=== PATIENT | female | born 1930 | race Caucasian/White ===

== ENCOUNTER 2017-10-28 15:31 | Inpatient (IN) | payer MEDICARE ==
--- NOTE | 2017-10-28 15:40 | ED Physician Chart ---
ED Chief Complaint/HPI - Patient Information Date Seen:: 10/28/17 Time Seen:: 15:35 Chief Complaint:: Increased agitation for 3 days. History of Present Illness:: Pt has h/o dementia. She was brought in by private auto with her son Rommel because of increased agitation for at least 3 days. No known fever, anorexia, N/ V/D, or other bodily discomfort. Pt is not cooperative; thus, H & P are limited. Pt does not appear to be in distress. Allergies:: NKA Vitals:: see Nurse Note. Historian:: Patient, Family Member (her son Rommel.) Family MD/PCP:: Dr. Tilley. LMP:: Postmenopausal. Review:: Nurse's Note Reviewed ED Review of Systems - Review of Systems General/Constitutional: No fever, No weight loss, No weakness, No edema, No loss of appetite, Other (Review of systems is limited because pt has dementia and is not cooperative.) Skin: No rash, No bruising Cardio Vascular: No chest pain, No edema Pulmonary: No SOB GI: No nausea, No vomiting, No diarrhea, No pain ED Past Medical History - Past Medical History Past Medical History: Dementia, Other (chronic anemia.) Family History: Diabetes Melitus (in father and son.) Social History: No Alcohol, No Drug Use, , Other (lives with her son Rommel.) Employment:: Retired. Surgical History: None Psychiatricy History: Dementia Medication: Reviewed Family Medical History - Family Member Mother History Unknown: Yes ED Physical Exam - Physical Examination General/Constitutional: Awake, Well-developed, well-nourished, Alert, Non-toxic appearing Other Gen/Cons comments:: Breathes comfortably, speaks clearly, but is not cooperative. Pt at times is very agitated. Head: Atraumatic Eyes: Lids, conjuctiva normal, PERRL, EOMI Skin: Nl inspection, No ecchymosis, No lymphadenopathy ENMT: External ears, nose nl, Nasal exam nl, Oropharynx nl, Tonsils nl Neck: Nontender, Full ROM w/o pain, No JVD, No nuchal rigidity, No mass, No stridor Respiratory: Nl effort/Exclusion, Clear to Auscultation, No Wheeze/Rhonchi/Rales Cardio Vascular: RRR, No murmur, gallop, rubs GI: No tenderness/rebounding/guarding, No organomegaly, No hernia, Normal BS's, Nondistended, No mass/bruits Other GI comments:: Abdomen is soft. : No CVA tenderness Extremities: No tenderness or effusion, Full ROM, No edema Neuro/Psych: Alert/oriented Other Neuro/Psych comments:: knows her name. Spontaneous movements noticed in all 4 extremities. Pt does not cooperate for full neurological exam. ED Labs/Radiology/EKG Results - Lab Results Results: Laboratory Tests 10/28/17 10/28/17 10/28/17 15:52 15:52 15:52 WBC 8.0 RBC 5.08 Hgb 10.0 L Hct 31.6 L MCH 19.6 L MCHC Differential 31.5 RDW 13.8 Plt Count 209 MPV 10.4 PT 11.0 INR 1.06 PTT (Actin FS) 25.8 L Sodium 131 L Potassium 4.3 Chloride 101 Carbon Dioxide 24.6 Anion Gap 9.7 BUN 22 Creatinine 0.9 Est GFR ( Amer) TNP Est GFR (Non-Af Amer) TNP BUN/Creatinine Ratio 24.4 Glucose 97 Whole Bld Lactic Acid Calcium 8.8 Total Bilirubin 0.6 AST 24 ALT 16 Alkaline Phosphatase 101 Creatine Kinase 32 Total Protein 7.0 Albumin 3.7 Globulin 3.3 Albumin/Globulin Ratio 1.1 10/28/17 15:52 WBC RBC Hgb Hct MCH MCHC Differential RDW Plt Count MPV PT INR PTT (Actin FS) Sodium Potassium Chloride Carbon Dioxide Anion Gap BUN Creatinine Est GFR ( Amer) Est GFR (Non-Af Amer) BUN/Creatinine Ratio Glucose Whole Bld Lactic Acid 1.22 Calcium Total Bilirubin AST ALT Alkaline Phosphatase Creatine Kinase Total Protein Albumin Globulin Albumin/Globulin Ratio Laboratory Last Values WBC 8.0 Th/cmm (4.8-10.8) 10/28/17 15:52 RBC 5.08 Mil/cmm (3.80-5.20) 10/28/17 15:52 Hgb 10.0 gm/dL (12-16) L 10/28/17 15:52 Hct 31.6 % (41.0-60) L 10/28/17 15:52 MCV 62.2 fl (81-100) L 10/28/17 15:52 MCH 19.6 pg (27.0-31.0) L 10/28/17 15:52 MCHC Differential 31.5 pg (28.0-36.0) 10/28/17 15:52 RDW 13.8 % (11.5-20.0) 10/28/17 15:52 Plt Count 209 Th/cmm (150-400) 10/28/17 15:52 MPV 10.4 fl 10/28/17 15:52 Band Neutrophils % 2 % (0-10) 10/28/17 15:52 Neutrophils (Manual) 85 % (40-80) H 10/28/17 15:52 Lymphocytes 10 % (20-50) L 10/28/17 15:52 Monocytes 3 % (2-10) 10/28/17 15:52 Eosinophils 0 % (0-5) 10/28/17 15:52 Basophils 0 % (0-3) 10/28/17 15:52 Platelet Estimate ADEQUATE (NORMAL) 10/28/17 15:52 Microcytosis 3+ 10/28/17 15:52 PT 11.0 SECONDS (9.5-11.5) 10/28/17 15:52 INR 1.06 (0.5-1.4) 10/28/17 15:52 PTT (Actin FS) 25.8 SECONDS (26.0-38.0) L 10/28/17 15:52 Sodium 131 mEq/L (136-145) L 10/28/17 15:52 Potassium 4.3 mEq/L (3.5-5.1) 10/28/17 15:52 Chloride 101 mEq/L (98-107) 10/28/17 15:52 Carbon Dioxide 24.6 mEq/L (21.0-31.0) 10/28/17 15:52 Anion Gap 9.7 (7.0-16.0) 10/28/17 15:52 BUN 22 mg/dL (7-25) 10/28/17 15:52 Creatinine 0.9 mg/dL (0.6-1.2) 10/28/17 15:52 Est GFR ( Amer) TNP 10/28/17 15:52 Est GFR (Non-Af Amer) TNP 10/28/17 15:52 BUN/Creatinine Ratio 24.4 10/28/17 15:52 Glucose 97 mg/dL (70-105) 10/28/17 15:52 Whole Bld Lactic Acid 1.22 mmol/L (0.60-1.99) 10/28/17 15:52 Calcium 8.8 mg/dL (8.6-10.3) 10/28/17 15:52 Total Bilirubin 0.6 mg/dL (0.3-1.0) 10/28/17 15:52 AST 24 U/L (13-39) 10/28/17 15:52 ALT 16 U/L (7-52) 10/28/17 15:52 Alkaline Phosphatase 101 U/L (34-104) 10/28/17 15:52 Creatine Kinase 32 U/L (30-223) 10/28/17 15:52 Troponin I 0.01 ng/mL (0.01-0.05) 10/28/17 15:52 Total Protein 7.0 gm/dL (6.0-8.3) 10/28/17 15:52 Albumin 3.7 gm/dL (3.7-5.3) 10/28/17 15:52 Globulin 3.3 gm/dL 10/28/17 15:52 Albumin/Globulin Ratio 1.1 (1.0-1.8) 10/28/17 15:52 Laboratory Last Values WBC 8.0 Th/cmm (4.8-10.8) 10/28/17 15:52 RBC 5.08 Mil/cmm (3.80-5.20) 10/28/17 15:52 Hgb 10.0 gm/dL (12-16) L 10/28/17 15:52 Hct 31.6 % (41.0-60) L 10/28/17 15:52 MCV 62.2 fl (81-100) L 10/28/17 15:52 MCH 19.6 pg (27.0-31.0) L 10/28/17 15:52 MCHC Differential 31.5 pg (28.0-36.0) 10/28/17 15:52 RDW 13.8 % (11.5-20.0) 10/28/17 15:52 Plt Count 209 Th/cmm (150-400) 10/28/17 15:52 MPV 10.4 fl 10/28/17 15:52 Band Neutrophils % 2 % (0-10) 10/28/17 15:52 Neutrophils (Manual) 85 % (40-80) H 10/28/17 15:52 Lymphocytes 10 % (20-50) L 10/28/17 15:52 Monocytes 3 % (2-10) 10/28/17 15:52 Eosinophils 0 % (0-5) 10/28/17 15:52 Basophils 0 % (0-3) 10/28/17 15:52 Platelet Estimate ADEQUATE (NORMAL) 10/28/17 15:52 Microcytosis 3+ 10/28/17 15:52 PT 11.0 SECONDS (9.5-11.5) 10/28/17 15:52 INR 1.06 (0.5-1.4) 10/28/17 15:52 PTT (Actin FS) 25.8 SECONDS (26.0-38.0) L 10/28/17 15:52 Sodium 131 mEq/L (136-145) L 10/28/17 15:52 Potassium 4.3 mEq/L (3.5-5.1) 10/28/17 15:52 Chloride 101 mEq/L (98-107) 10/28/17 15:52 Carbon Dioxide 24.6 mEq/L (21.0-31.0) 10/28/17 15:52 Anion Gap 9.7 (7.0-16.0) 10/28/17 15:52 BUN 22 mg/dL (7-25) 10/28/17 15:52 Creatinine 0.9 mg/dL (0.6-1.2) 10/28/17 15:52 Est GFR ( Amer) TNP 10/28/17 15:52 Est GFR (Non-Af Amer) TNP 10/28/17 15:52 BUN/Creatinine Ratio 24.4 10/28/17 15:52 Glucose 97 mg/dL (70-105) 10/28/17 15:52 Whole Bld Lactic Acid 1.22 mmol/L (0.60-1.99) 10/28/17 15:52 Calcium 8.8 mg/dL (8.6-10.3) 10/28/17 15:52 Total Bilirubin 0.6 mg/dL (0.3-1.0) 04/01/18 15:52 AST 24 U/L (13-39) 10/28/17 15:52 ALT 16 U/L (7-52) 10/28/17 15:52 Alkaline Phosphatase 101 U/L (34-104) 10/28/17 15:52 Creatine Kinase 32 U/L (30-223) 10/28/17 15:52 Troponin I 0.01 ng/mL (0.01-0.05) 10/28/17 15:52 Total Protein 7.0 gm/dL (6.0-8.3) 10/28/17 15:52 Albumin 3.7 gm/dL (3.7-5.3) 10/28/17 15:52 Globulin 3.3 gm/dL 10/28/17 15:52 Albumin/Globulin Ratio 1.1 (1.0-1.8) 10/28/17 15:52 Laboratory Last Values WBC 8.0 Th/cmm (4.8-10.8) 10/28/17 15:52 RBC 5.08 Mil/cmm (3.80-5.20) 10/28/17 15:52 Hgb 10.0 gm/dL (12-16) L 10/28/17 15:52 Hct 31.6 % (41.0-60) L 10/28/17 15:52 MCV 62.2 fl (81-100) L 10/28/17 15:52 MCH 19.6 pg (27.0-31.0) L 10/28/17 15:52 MCHC Differential 31.5 pg (28.0-36.0) 10/28/17 15:52 RDW 13.8 % (11.5-20.0) 10/28/17 15:52 Plt Count 209 Th/cmm (150-400) 10/28/17 15:52 MPV 10.4 fl 10/28/17 15:52 Band Neutrophils % 2 % (0-10) 10/28/17 15:52 Neutrophils (Manual) 85 % (40-80) H 10/28/17 15:52 Lymphocytes 10 % (20-50) L 10/28/17 15:52 Monocytes 3 % (2-10) 10/28/17 15:52 Eosinophils 0 % (0-5) 10/28/17 15:52 Basophils 0 % (0-3) 10/28/17 15:52 Platelet Estimate ADEQUATE (NORMAL) 10/28/17 15:52 Microcytosis 3+ 10/28/17 15:52 PT 11.0 SECONDS (9.5-11.5) 10/28/17 15:52 INR 1.06 (0.5-1.4) 10/28/17 15:52 PTT (Actin FS) 25.8 SECONDS (26.0-38.0) L 10/28/17 15:52 Sodium 131 mEq/L (136-145) L 10/28/17 15:52 Potassium 4.3 mEq/L (3.5-5.1) 10/28/17 15:52 Chloride 101 mEq/L (98-107) 10/28/17 15:52 Carbon Dioxide 24.6 mEq/L (21.0-31.0) 10/28/17 15:52 Anion Gap 9.7 (7.0-16.0) 10/28/17 15:52 BUN 22 mg/dL (7-25) 10/28/17 15:52 Creatinine 0.9 mg/dL (0.6-1.2) 10/28/17 15:52 Est GFR ( Amer) TNP 10/28/17 15:52 Est GFR (Non-Af Amer) TNP 10/28/17 15:52 BUN/Creatinine Ratio 24.4 10/28/17 15:52 Glucose 97 mg/dL (70-105) 10/28/17 15:52 Whole Bld Lactic Acid 1.22 mmol/L (0.60-1.99) 10/28/17 15:52 Calcium 8.8 mg/dL (8.6-10.3) 10/28/17 15:52 Total Bilirubin 0.6 mg/dL (0.3-1.0) 10/28/17 15:52 AST 24 U/L (13-39) 10/28/17 15:52 ALT 16 U/L (7-52) 10/28/17 15:52 Alkaline Phosphatase 101 U/L (34-104) 10/28/17 15:52 Creatine Kinase 32 U/L (30-223) 10/28/17 15:52 Troponin I 0.01 ng/mL (0.01-0.05) 10/28/17 15:52 Total Protein 7.0 gm/dL (6.0-8.3) 10/28/17 15:52 Albumin 3.7 gm/dL (3.7-5.3) 10/28/17 15:52 Globulin 3.3 gm/dL 10/28/17 15:52 Albumin/Globulin Ratio 1.1 (1.0-1.8) 10/28/17 15:52 Urine Color YELLOW 10/28/17 17:30 Urine Clarity CLEAR (CLEAR) 10/28/17 17:30 Urine pH 7.5 (4.6 - 8.0) 10/28/17 17:30 Ur Specific [place] 1.015 (1.005-1.030) 10/28/17 17:30 Urine Protein NEGATIVE mg/dL (NEGATIVE) 10/28/17 17:30 Urine Glucose (UA) NEGATIVE mg/dL (NEGATIVE) 10/28/17 17:30 Urine Ketones NEGATIVE mg/dL (NEGATIVE) 10/28/17 17:30 Urine Blood NEGATIVE (NEGATIVE) 10/28/17 17:30 Urine Nitrate NEGATIVE (NEGATIVE) 10/28/17 17:30 Urine Bilirubin NEGATIVE (NEGATIVE) 10/28/17 17:30 Urine Urobilinogen 0.2 E.U./dL (0.2 - 1.0) 10/28/17 17:30 Ur Leukocyte Esterase NEGATIVE (NEGATIVE) 10/28/17 17:30 - Radiology Results Results: PCXR: Based on my interpretation, no acute cardiopulmonary disease. Official report is pending. - EKG Interpretations EKG Time:: 16:22 Rate & Rhythm: NSR with VR 98. Comments:: NSSTT changes. ED Septic Shock - . Is Septic Shock (SBP<90, OR Lactate>4 mmol\L) present?: No ED Reassessment (Disposition) - Reassessment Reassessment:: 1631 Pt has been repeatedly evaluated. Pt is now calm after Ativan one mg IV was given. Remaining lab results and PCXR are pending. 1814 Pt remains stable, calm, and comfortable. Remaining lab results just became available. Case was discussed with Dr. Tilley with pertinent H & P, EKG, CXR, and lab findings reviewed. Pt is to be admitted to [facility] under his care. Reassessment Condition:: Improved - Diagnosis Diagnosis:: Dementia with increased agitation. Low grade bodily temperature. Chronic anemia - Patient Disposition Admitted to:: Med/Surg Admitting Medical Physician:: Chano Tilley Time:: 18:20 Condition at Disposition:: Stable, Improved
[2017-10-28] MEDS ORDERED: cefTRIAXone 1 GM in Sodium Chloride 0.9% 50 ML IV ONE (15:53)
[2017-10-28 16:04] LABS: HEMATOCRIT 31.6 % (41.0-60)
[2017-10-28 16:08] LABS: MEAN CORPUSCULAR HEMOGLOBIN 19.6 pg (27.0-31.0); MEAN CORPUSCULAR HGB CONC 31.5 pg (28.0-36.0); MEAN PLATELET VOLUME 10.4 fl; PLATELET COUNT 209 Th/cmm (150-400); RED BLOOD COUNT 5.08 Mil/cmm (3.80-5.20); RED CELL DISTRIBUTION WIDTH 13.8 % (11.5-20.0)
[2017-10-28 16:14] LABS: MANUAL DIFF REQUIRED? YES
[2017-10-28 16:20] LABS: INR 1.06 (0.5-1.4)
[2017-10-28 16:24] LABS: ALB/GLOB RATIO 1.1 (1.0-1.8); ALBUMIN 3.7 gm/dL (3.7-5.3); ALKALINE PHOSPHATASE 101 U/L (34-104); ANION GAP 9.7 (7.0-16.0); BILIRUBIN,TOTAL 0.6 mg/dL (0.3-1.0); BUN - UREA NITROGEN 22 mg/dL (7-25); CALCIUM SERUM 8.8 mg/dL (8.6-10.3); CARBON DIOXIDE 24.6 mEq/L (21.0-31.0); CHLORIDE 101 mEq/L (98-107); CREATININE - SERUM 0.9 mg/dL (0.6-1.2); CREATININE KINASE 32 U/L (30-223); GLUCOSE 97 mg/dL (70-105); POTASSIUM SERUM 4.3 mEq/L (3.5-5.1); SGOT 24 U/L (13-39); SGPT/ALT 16 U/L (7-52); SODIUM SERUM 131 mEq/L (136-145)
[2017-10-28 16:27] LABS: TROP I 0.01 ng/mL (0.01-0.05)
[2017-10-28 16:38] LABS: BAND NEUTROPHILE 2 % (0-10); BASOPHIL 0 % (0-3); EOSINOPHIL 0 % (0-5); LYMPHOCYTE 10 % (20-50); MONOCYTE 3 % (2-10); NEUTROPHILS 85 % (40-80); PLATELET ESTIMATE ADEQUATE (NORMAL); TOTAL CELLS COUNTED 100
[2017-10-28 16:42] LABS: MEAN CELL VOLUME 62.2 fl (81-100)
[2017-10-28 18:04] LABS: URINE MICROSCOPIC INDICATED? YES; URINE SOURCE CATH
[2017-10-28 18:08] LABS: URINE BILIRUBIN NEGATIVE (NEGATIVE); URINE BLOOD NEGATIVE (NEGATIVE); URINE GLUCOSE (UA) NEGATIVE (NEGATIVE); URINE KETONE NEGATIVE (NEGATIVE); URINE LEUKOCYTE ESTERASE NEGATIVE (NEGATIVE); URINE NITRATE NEGATIVE (NEGATIVE); URINE PH 7.5 (4.6 - 8.0); URINE PROTEIN NEGATIVE (NEGATIVE); URINE UROBILINOGEN 0.2 E.U./dL (0.2 - 1.0)
[2017-10-28 18:10] LABS: URINE CLARITY CLEAR (CLEAR); URINE COLOR YELLOW
[2017-10-28 18:12] LABS: URINE RBC 0-2 /hpf (0-5)
[2017-10-28 18:13] LABS: URINE BACTERIA NONE SEEN /hpf (NONE SEEN); URINE EPITHELIAL CELLS OCCASIONAL /lpf (FEW); URINE WBC 0-2 /hpf (0-5)
[2017-10-28] MEDS ORDERED: Mag Sulfate 2gm/50mL Premix 2 GM/50 ML BAG IV PRN (18:52)
[2017-10-28] MEDS ORDERED: Potassium Chloride 20 mEq ER Tab PO PRN (18:52)
[2017-10-28] MEDS ORDERED: Potassium Chloride 40 MEQ, Lidocaine 1% 20mL Vial 25 MG in Sodium Chloride 0.9% 250 ML IV PRN (18:52)
[2017-10-28] MEDS: Sodium Chloride 0.9% 1,000 ML IV SCH (22:35)
[2017-10-29 01:31] VITALS: BP 149/86
[2017-10-29 05:52] LABS: HEMATOCRIT 34.7 % (41.0-60); HEMOGLOBIN 10.8 gm/dL (12-16); MEAN CORPUSCULAR HEMOGLOBIN 19.4 pg (27.0-31.0); MEAN PLATELET VOLUME 11.6 fl; PLATELET COUNT 205 Th/cmm (150-400); RED BLOOD COUNT 5.55 Mil/cmm (3.80-5.20); RED CELL DISTRIBUTION WIDTH 14.1 % (11.5-20.0)
[2017-10-29 05:55] LABS: MANUAL DIFF REQUIRED? YES
[2017-10-29 06:03] LABS: ANION GAP 12.3 (7.0-16.0); BUN - UREA NITROGEN 18 mg/dL (7-25); CALCIUM SERUM 8.6 mg/dL (8.6-10.3); CARBON DIOXIDE 23.3 mEq/L (21.0-31.0); CHLORIDE 101 mEq/L (98-107); CREATININE - SERUM 0.9 mg/dL (0.6-1.2); GLUCOSE 84 mg/dL (70-105); POTASSIUM SERUM 4.6 mEq/L (3.5-5.1); SODIUM SERUM 132 mEq/L (136-145)
--- NOTE | 2017-10-29 07:30 | Diagnostic Imaging Report ---
Portable chest x-ray HISTORY: Fever Allowing for portable technique, the heart size is normal. Atherosclerotic calcification seen within the aortic arch. Slight accentuation of the lower interstitial lung markings. However, no definite acute focal processes are seen. IMPRESSION: 1. No definite acute focal pulmonary processes 2. Atherosclerotic vascular changes
[2017-10-29 07:46] LABS: BAND NEUTROPHILE 3 % (0-10); EOSINOPHIL 1 % (0-5); LYMPHOCYTE 21 % (20-50); MONOCYTE 5 % (2-10); NEUTROPHILS 70 % (40-80); TOTAL CELLS COUNTED 100
[2017-10-29 07:54] LABS: MEAN CELL VOLUME 62.6 fl (81-100)
--- NOTE | 2017-10-29 09:21 | History & Physical ---
ADMIT DATE: 10/28/2017 CHIEF COMPLAINT: Psychosis, agitation, and worsening confusion. HISTORY OF PRESENT ILLNESS: The patient is very confused 87-year-old female. She has history of mood disorder along with Alzheimer dementia as well. For the last couple of days, she has been experiencing more muscle weakness along with worsening confusion and psychosis as well. She was brought to the ER where she was found to have accelerated hypertension and hyponatremia. PAST MEDICAL HISTORY: Significant for mood disorder, Alzheimer's dementia, and hypertension. SOCIAL HISTORY: No history of alcohol, tobacco, or drug abuse. FAMILY HISTORY: Noncontributory. ALLERGIES: No known drug allergies. SURGICAL HISTORY: No recent major surgeries. REVIEW OF SYSTEMS: GENERAL: Positive recent confusion, worsening fatigue, and overall lethargy. HEENT: No recent head trauma or change in vision, taste, hearing, or smell. GASTROINTESTINAL: Positive for decreased oral intake recently and some weight loss as well. No nausea or vomiting. ABDOMEN: No recent pain or distension. SKIN: No recent rashes. PSYCHIATRIC: Positive for psychosis and mood disorder and worsening agitation and irritability. EXTREMITIES: No recent edema. NEUROLOGIC: No history of stroke or seizure. MUSCULOSKELETAL: Positive history of DJD. PHYSICAL EXAMINATION: VITAL SIGNS: Temperature is 98 degrees, heart rate is 110, respirations 20, blood pressure 141/73. Currently, no pain. However, she has been spiking fevers of 100.6 to 100.7 since last night. This morning is 98 degrees. GENERAL: No acute distress. She is very lethargic and confused. HEENT: No acute issues. EYES: No discharge. NECK: Trachea is midline. CARDIOVASCULAR: Regular rate and rhythm. She has episodes of sinus tachycardia. RESPIRATORY: Decreased breath sounds bilaterally. EXTREMITIES: No edema. MUSCULOSKELETAL: She has decreased muscle strength and muscle wasting as well. She appears cachectic. NEUROLOGIC: No evidence of acute stroke or seizure activity. LABORATORY DATA: Blood culture is pending. Chest x-ray is essentially negative. UA is negative. Sodium 131, potassium 4.3, chloride 101, bicarbonate 24.6, BUN 22, creatinine 0.9. Lactic acid is 1.22. Magnesium is 1.9, ____ . Troponin 0.01. AST 24 and ALT 16. ASSESSMENT: 1. Metabolic encephalopathy. 2. Psychosis. 3. Accelerated hypertension. 4. Hyponatremia. 5. Unsteady gait. 6. Dementia, Alzheimer's type with exacerbation. PLAN: The patient is still spiking fevers. Blood cultures pending. Chest x-ray and UA are negative. Her blood pressure is improved. She is now on metoprolol [address] Serrano has been consulted for psychiatry. Continue IV normal saline at 75 mL an hour. Follow up on the chemistry panel tomorrow. She is also on Seroquel 25 mg daily. I have stopped the Ativan as she becomes very lethargic. JOB# [id number]
[2017-10-29] MEDS: Sodium Chloride 0.9% 1,000 ML IV SCH (16:25)
--- NOTE | 2017-10-29 20:53 | Consultation ---
DATE OF CONSULTATION: 10/29/2017 PHYSICIAN REQUESTING CONSULTATION: Dr. Tilley. REASON FOR CONSULTATION: Psychosis. HISTORY OF PRESENT ILLNESS: This patient is an 87-year-old woman admitted for acute agitation and psychosis and worsening confusion. A psychiatric consultation is called to address the issue. The patient is interviewed. Staff was spoken to. The patient continues to be very lethargic and has been not making much sense. Review of the chart indicated that the patient had been on Ativan that was discontinued. The patient is also on Seroquel 25 mg and the patient at this time is not making much sense. Continues to be paranoid; however, is noted to be acutely lethargic as well as confused. The patient has poor short-term as well as long-term memory deficits and I am not getting much information from the patient. PAST PSYCHIATRIC HISTORY: Details are not known. MEDICAL HISTORY: The patient at this time is being treated for hypertension and lethargy. SUBSTANCE ABUSE HISTORY: None. PHYSICAL OR SEXUAL ABUSE HISTORY: None. LEGAL PROBLEMS: None at this time. STRENGTHS AND ASSETS: The patient seems to be motivated. MENTAL EXAMINATION: The patient is an 87-year-old woman looking her stated age, superficially cooperative. Eye contact is poor. Mood is noted to be depressed. Affect is constricted. The patient is very lethargic. The patient's coping skills are noted to be very poor. The patient has paranoid delusions, but details about the command hallucinations could not be elicited, but the patient is not providing much of information. The patient's short and long-term memory are noted to be impaired. The patient, however, is noted to be aware that she is in the hospital. DIAGNOSTIC IMPRESSION: AXIS I: 1A. Psychosis, not otherwise specified. 1B. Dementia and behavioral change, secondary trait. AXIS II: None. AXIS III: As per Dr. Tilley. IMMEDIATE TREATMENT PLAN: The patient's Seroquel is going to be discontinued. The patient is going to be placed on Haldol 1 mg b.i.d. p.r.n. for agitation and the patient is going to be closely monitored. The Ambien is going to be changed to 5 mg in the morning. JOB# [id number]
[2017-10-30] MEDS: Morphine Sulfate 4 mg/mL 1mL Syr IVP PRN ×2 (04:47→15:31)
[2017-10-30 05:33] LABS: HEMATOCRIT 33.5 % (41.0-60); HEMOGLOBIN 10.4 gm/dL (12-16); MEAN CORPUSCULAR HEMOGLOBIN 19.5 pg (27.0-31.0); MEAN CORPUSCULAR HGB CONC 31.2 pg (28.0-36.0); MEAN PLATELET VOLUME 11.4 fl; PLATELET COUNT 216 Th/cmm (150-400); RED BLOOD COUNT 5.37 Mil/cmm (3.80-5.20); WHITE BLOOD COUNT 8.1 Th/cmm (4.8-10.8)
[2017-10-30 05:34] LABS: MANUAL DIFF REQUIRED? YES
[2017-10-30 05:46] LABS: ANION GAP 10.3 (7.0-16.0); BUN - UREA NITROGEN 14 mg/dL (7-25); CALCIUM SERUM 8.5 mg/dL (8.6-10.3); CARBON DIOXIDE 23.2 mEq/L (21.0-31.0); CHLORIDE 102 mEq/L (98-107); CREATININE - SERUM 0.8 mg/dL (0.6-1.2); GLUCOSE 82 mg/dL (70-105); POTASSIUM SERUM 3.5 mEq/L (3.5-5.1); SODIUM SERUM 132 mEq/L (136-145)
[2017-10-30 06:09] LABS: BAND NEUTROPHILE 2 % (0-10); LYMPHOCYTE 23 % (20-50); MONOCYTE 8 % (2-10); NEUTROPHILS 67 % (40-80); TOTAL CELLS COUNTED 100
[2017-10-30 06:41] LABS: MEAN CELL VOLUME 62.3 fl (81-100)
--- NOTE | 2017-10-30 09:33 | General Progress Note ---
Subjective - Review of Systems Service Date: 10/30/17 Subjective: Pt seen and eval. I've met with he daughter and son in law as well. They want their mother to go to [place] ce[place], when she's stable. Pt seen by Dr. Keene. He's placed on prn Haldol now, and dc'd Seroquel. Pt resting. Has episodes of psychosis. No fevers or chills. No cough. No dysuria. No pain. No n,v,d or cp. Objective - Results Result Diagrams: 10/30/17 04:45 10/30/17 04:45 Recent Labs: Laboratory Last Values WBC 8.1 Th/cmm (4.8-10.8) 10/30/17 04:45 RBC 5.37 Mil/cmm (3.80-5.20) H 10/30/17 04:45 Hgb 10.4 gm/dL (12-16) L 10/30/17 04:45 Hct 33.5 % (41.0-60) L 10/30/17 04:45 MCV 62.3 fl (81-100) L 10/30/17 04:45 MCH 19.5 pg (27.0-31.0) L 10/30/17 04:45 MCHC Differential 31.2 pg (28.0-36.0) 10/30/17 04:45 RDW 14.0 % (11.5-20.0) 10/30/17 04:45 Plt Count 216 Th/cmm (150-400) 10/30/17 04:45 MPV 11.4 fl 10/30/17 04:45 Band Neutrophils % 2 % (0-10) 10/30/17 04:45 Neutrophils (Manual) 67 % (40-80) 10/30/17 04:45 Lymphocytes 23 % (20-50) 10/30/17 04:45 Monocytes 8 % (2-10) 10/30/17 04:45 Eosinophils 1 % (0-5) 10/29/17 04:55 Basophils 0 % (0-3) 10/28/17 15:52 Platelet Estimate ADEQUATE (NORMAL) 10/28/17 15:52 Microcytosis 2+ 10/30/17 04:45 RBC Morph Micro Appear ABNORMAL (NORMAL) 10/30/17 04:45 PT 11.0 SECONDS (9.5-11.5) 10/28/17 15:52 INR 1.06 (0.5-1.4) 10/28/17 15:52 PTT (Actin FS) 25.8 SECONDS (26.0-38.0) L 10/28/17 15:52 Sodium 132 mEq/L (136-145) L 10/30/17 04:45 Potassium 3.5 mEq/L (3.5-5.1) 10/30/17 04:45 Chloride 102 mEq/L (98-107) 10/30/17 04:45 Carbon Dioxide 23.2 mEq/L (21.0-31.0) 10/30/17 04:45 Anion Gap 10.3 (7.0-16.0) 10/30/17 04:45 BUN 14 mg/dL (7-25) 10/30/17 04:45 Creatinine 0.8 mg/dL (0.6-1.2) 10/30/17 04:45 Est GFR ( Amer) TNP 10/30/17 04:45 Est GFR (Non-Af Amer) TNP 10/30/17 04:45 BUN/Creatinine Ratio 17.5 10/30/17 04:45 Glucose 82 mg/dL (70-105) 10/30/17 04:45 Hemoglobin A1c % 5.0 % (4.0-6.0) 10/28/17 15:52 Whole Bld Lactic Acid 1.22 mmol/L (0.60-1.99) 10/28/17 15:52 Calcium 8.5 mg/dL (8.6-10.3) L 10/30/17 04:45 Magnesium 1.9 mg/dL (1.9-2.7) 10/28/17 15:52 Total Bilirubin 0.6 mg/dL (0.3-1.0) 10/28/17 15:52 AST 24 U/L (13-39) 10/28/17 15:52 ALT 16 U/L (7-52) 10/28/17 15:52 Alkaline Phosphatase 101 U/L (34-104) 10/28/17 15:52 Creatine Kinase 32 U/L (30-223) 10/28/17 15:52 Troponin I 0.01 ng/mL (0.01-0.05) 10/28/17 15:52 Total Protein 7.0 gm/dL (6.0-8.3) 10/28/17 15:52 Albumin 3.7 gm/dL (3.7-5.3) 10/28/17 15:52 Globulin 3.3 gm/dL 10/28/17 15:52 Albumin/Globulin Ratio 1.1 (1.0-1.8) 10/28/17 15:52 Urine Source CATH 10/28/17 17:30 Urine Color YELLOW 10/28/17 17:30 Urine Clarity CLEAR (CLEAR) 10/28/17 17:30 Urine pH 7.5 (4.6 - 8.0) 10/28/17 17:30 Ur Specific [place] 1.015 (1.005-1.030) 10/28/17 17:30 Urine Protein NEGATIVE mg/dL (NEGATIVE) 10/28/17 17:30 Urine Glucose (UA) NEGATIVE mg/dL (NEGATIVE) 10/28/17 17:30 Urine Ketones NEGATIVE mg/dL (NEGATIVE) 10/28/17 17:30 Urine Blood NEGATIVE (NEGATIVE) 10/28/17 17:30 Urine Nitrate NEGATIVE (NEGATIVE) 10/28/17 17:30 Urine Bilirubin NEGATIVE (NEGATIVE) 10/28/17 17:30 Urine Urobilinogen 0.2 E.U./dL (0.2 - 1.0) 10/28/17 17:30 Ur Leukocyte Esterase NEGATIVE (NEGATIVE) 10/28/17 17:30 Urine RBC 0-2 /hpf (0-5) 10/28/17 17:30 Urine WBC 0-2 /hpf (0-5) 10/28/17 17:30 Ur Epithelial Cells OCCASIONAL /lpf (FEW) 10/28/17 17:30 Urine Bacteria NONE SEEN /hpf (NONE SEEN) 10/28/17 17:30 - Physical Exam Vitals and I&O: Vital Signs Temp 98.6 F 10/30/17 04:00 Pulse 71 10/30/17 08:16 Resp 19 10/30/17 04:00 BP 98/70 10/30/17 08:16 Pulse Ox 96 10/30/17 04:00 Intake & Output 04/02/18 04/03/18 04/03/18 18:59 06:59 18:59 Intake Total 1000 50 Balance 1000 50 Weight (lbs) 41.277 kg Intake: Intake, IV Amount 1000 Sodium Chloride 0.9% 1, 1000 000 ml @ 75 mls/hr IV . [id number] [facility] Rx#:[id number] Oral 50 Other: # Voids 4 # Bowel Movements 0 Weight Source Estimated Active Medications: Current Medications Acetaminophen (Tylenol) 650 mg PO Q6H PRN PRN Reason: HEADACHE/TEMP ABOVE 100F Stop: 12/27/17 18:51 Last Admin: 10/28/17 22:31 Dose: 650 mg Haloperidol (Haldol) 1 mg PO BID PRN; Protocol PRN Reason: Agitation Stop: 12/29/17 08:59 Heparin Sodium (Porcine) (Heparin) 5,000 units SUBQ Q12HR [facility] Stop: 12/27/17 20:59 Last Admin: 10/30/17 08:15 Dose: 5,000 units Potassium Chloride 40 meq/Lidocaine HCl 25 mg/ Sodium Chloride 272.5 mls @ 68 mls/hr IV DAILY PRN PRN Reason: k level less than 3.2 Stop: 12/27/17 18:51 Magnesium Sulfate (Magnesium Sulfate Premix) 2 gm in 50 mls @ 25 mls/hr IV DAILY PRN PRN Reason: Magnesium level less than 1.6 Stop: 12/27/17 18:51 Sodium Chloride (Nacl 0.9%) 1,000 mls @ 75 mls/hr IV .[id number] [facility] Stop: 12/27/17 18:59 Last Admin: 10/29/17 16:25 Dose: 75 mls/hr Magnesium Oxide (Mag-Oxide) 400 mg PO BID PRN PRN Reason: Mg less than 1.9 Stop: 12/27/17 18:51 Metoprolol Tartrate (Lopressor) 25 mg PO BID [facility] Stop: 12/27/17 18:59 Last Admin: 10/30/17 08:16 Dose: Not Given Morphine Sulfate (Morphine) 1 mg IVP Q4HR PRN PRN Reason: Severe Pain Stop: 12/27/17 18:51 Last Admin: 10/30/17 04:47 Dose: 1 mg Ondansetron HCl (Zofran) 4 mg IVP Q6H PRN PRN Reason: Nausea / Vomiting Stop: 12/27/17 18:51 Potassium Chloride (Klor-Con) 40 meq PO DAILY PRN PRN Reason: k level less than 3.5 Stop: 12/27/17 18:51 Zolpidem Tartrate (Ambien) 5 mg PO HS PRN PRN Reason: Insomnia Stop: 12/27/17 18:51 General: Other (not alert or oriented) HEENT: Atraumatic, PERRLA Neck: Supple, no JVD Cardiovascular: Regular rate, Normal S1, Normal S2 Lungs: Clear to auscultation Abdomen: Bowel sounds, Soft - Procedures Procedures: Procedures Procedure Code Date CLOSURE SKIN & SUBCUTANEOUS NEC 86.59 02/11/08 Assessment/Plan - Problem List Patient Problems: All Active Problems AGITATION AND CONFUSION (Acute) - Assessment Assessment: ME Psychosis with ADAM with exac Acc HTN Hyponatremia Unsteady gait - Plan Plan: PT eval. Oh prn Haldol per Psych. Met with family. FU on labs. Fall prec.
[2017-10-31] MEDS: Morphine Sulfate 4 mg/mL 1mL Syr IVP PRN (01:12)
[2017-10-31] MEDS: Sodium Chloride 0.9% 1,000 ML IV SCH ×2 (01:23→18:35)
[2017-10-31 06:18] LABS: % BASOPHILS 0.1 % (0.0-2.0); % EOSINOPHILS 0.6 % (0.0-5.0); % MONOCYTES 5.9 % (2.0-10.0); % NEUTROPHILS 84.4 % (40.0-80.0); EOSINOPHILE ABSOLUTE 0.1 Th/cmm (0.1-0.4); HEMOGLOBIN 9.8 gm/dL (12-16); MEAN CORPUSCULAR HEMOGLOBIN 19.4 pg (27.0-31.0); MEAN CORPUSCULAR HGB CONC 31.8 pg (28.0-36.0); MEAN PLATELET VOLUME 10.5 fl; MONOCYTE ABSOLUTE 0.7 Th/cmm (0.3-1.0); NEUTROPHILE ABSOLUTE 9.6 Th/cmm (1.8-8.0); PLATELET COUNT 235 Th/cmm (150-400); RED BLOOD COUNT 5.07 Mil/cmm (3.80-5.20); WHITE BLOOD COUNT 11.4 Th/cmm (4.8-10.8)
[2017-10-31 06:38] LABS: ANION GAP 9.7 (7.0-16.0); BUN - UREA NITROGEN 17 mg/dL (7-25); CALCIUM SERUM 8.2 mg/dL (8.6-10.3); CHLORIDE 105 mEq/L (98-107); CREATININE - SERUM 0.8 mg/dL (0.6-1.2); GLUCOSE 115 mg/dL (70-105); POTASSIUM SERUM 3.7 mEq/L (3.5-5.1); SODIUM SERUM 134 mEq/L (136-145)
[2017-10-31 07:29] LABS: MEAN CELL VOLUME 61.2 fl (81-100)
[2017-10-31] MEDS ORDERED: Haloperidol Lactate 5 mg/mL 1mL Vial IM PRN (09:44)
--- NOTE | 2017-10-31 09:46 | General Progress Note ---
Subjective - Review of Systems Service Date: 10/31/17 Subjective: Pt seen and eval. I've met with he daughter and son in law as well. They want their [place] to go [place] [facility], when she's stable. Pt seen by Dr. Keene. He's placed on prn Haldol now, and dc'd Seroquel. Pt had episodes of severe agitation and psychosis last night. Per RN, oral Haldol was not effective. She required restraints unfortunately as she was pulling out her lines. No fevers or chills. No cough. No dysuria. No pain. No n,v,d or cp. Objective - Results Result Diagrams: 10/31/17 05:45 10/31/17 05:45 Recent Labs: Laboratory Last Values WBC 11.4 Th/cmm (4.8-10.8) H 10/31/17 05:45 RBC 5.07 Mil/cmm (3.80-5.20) 10/31/17 05:45 Hgb 9.8 gm/dL (12-16) L 10/31/17 05:45 Hct 31.0 % (41.0-60) L 10/31/17 05:45 MCV 61.2 fl (81-100) L 10/31/17 05:45 MCH 19.4 pg (27.0-31.0) L 10/31/17 05:45 MCHC Differential 31.8 pg (28.0-36.0) 10/31/17 05:45 RDW 14.0 % (11.5-20.0) 10/31/17 05:45 Plt Count 235 Th/cmm (150-400) 10/31/17 05:45 MPV 10.5 fl 10/31/17 05:45 Neutrophils % 84.4 % (40.0-80.0) H 10/31/17 05:45 Band Neutrophils % 2 % (0-10) 10/30/17 04:45 Lymphocytes % 9.0 % (20.0-50.0) L 10/31/17 05:45 Monocytes % 5.9 % (2.0-10.0) 10/31/17 05:45 Eosinophils % 0.6 % (0.0-5.0) 10/31/17 05:45 Basophils % 0.1 % (0.0-2.0) 10/31/17 05:45 Neutrophils (Manual) 67 % (40-80) 10/30/17 04:45 Lymphocytes 23 % (20-50) 10/30/17 04:45 Monocytes 8 % (2-10) 10/30/17 04:45 Eosinophils 1 % (0-5) 10/29/17 04:55 Basophils 0 % (0-3) 10/28/17 15:52 Platelet Estimate ADEQUATE (NORMAL) 10/28/17 15:52 Microcytosis 2+ 10/30/17 04:45 RBC Morph Micro Appear ABNORMAL (NORMAL) 10/30/17 04:45 PT 11.0 SECONDS (9.5-11.5) 10/28/17 15:52 INR 1.06 (0.5-1.4) 10/28/17 15:52 PTT (Actin FS) 25.8 SECONDS (26.0-38.0) L 10/28/17 15:52 Sodium 134 mEq/L (136-145) L 10/31/17 05:45 Potassium 3.7 mEq/L (3.5-5.1) 10/31/17 05:45 Chloride 105 mEq/L (98-107) 10/31/17 05:45 Carbon Dioxide 23.0 mEq/L (21.0-31.0) 10/31/17 05:45 Anion Gap 9.7 (7.0-16.0) 10/31/17 05:45 BUN 17 mg/dL (7-25) 10/31/17 05:45 Creatinine 0.8 mg/dL (0.6-1.2) 10/31/17 05:45 Est GFR ( Amer) TNP 10/31/17 05:45 Est GFR (Non-Af Amer) TNP 10/31/17 05:45 BUN/Creatinine Ratio 21.3 10/31/17 05:45 Glucose 115 mg/dL (70-105) H 10/31/17 05:45 Hemoglobin A1c % 5.0 % (4.0-6.0) 10/28/17 15:52 Whole Bld Lactic Acid 1.22 mmol/L (0.60-1.99) 10/28/17 15:52 Calcium 8.2 mg/dL (8.6-10.3) L 10/31/17 05:45 Magnesium 1.9 mg/dL (1.9-2.7) 10/28/17 15:52 Total Bilirubin 0.6 mg/dL (0.3-1.0) 10/28/17 15:52 AST 24 U/L (13-39) 10/28/17 15:52 ALT 16 U/L (7-52) 10/28/17 15:52 Alkaline Phosphatase 101 U/L (34-104) 10/28/17 15:52 Creatine Kinase 32 U/L (30-223) 10/28/17 15:52 Troponin I 0.01 ng/mL (0.01-0.05) 10/28/17 15:52 Total Protein 7.0 gm/dL (6.0-8.3) 10/28/17 15:52 Albumin 3.7 gm/dL (3.7-5.3) 10/28/17 15:52 Globulin 3.3 gm/dL 10/28/17 15:52 Albumin/Globulin Ratio 1.1 (1.0-1.8) 10/28/17 15:52 Urine Source CATH 10/28/17 17:30 Urine Color YELLOW 10/28/17 17:30 Urine Clarity CLEAR (CLEAR) 10/28/17 17:30 Urine pH 7.5 (4.6 - 8.0) 10/28/17 17:30 Ur Specific [place] 1.015 (1.005-1.030) 10/28/17 17:30 Urine Protein NEGATIVE mg/dL (NEGATIVE) 10/28/17 17:30 Urine Glucose (UA) NEGATIVE mg/dL (NEGATIVE) 10/28/17 17:30 Urine Ketones NEGATIVE mg/dL (NEGATIVE) 10/28/17 17:30 Urine Blood NEGATIVE (NEGATIVE) 10/28/17 17:30 Urine Nitrate NEGATIVE (NEGATIVE) 10/28/17 17:30 Urine Bilirubin NEGATIVE (NEGATIVE) 10/28/17 17:30 Urine Urobilinogen 0.2 E.U./dL (0.2 - 1.0) 10/28/17 17:30 Ur Leukocyte Esterase NEGATIVE (NEGATIVE) 10/28/17 17:30 Urine RBC 0-2 /hpf (0-5) 10/28/17 17:30 Urine WBC 0-2 /hpf (0-5) 10/28/17 17:30 Ur Epithelial Cells OCCASIONAL /lpf (FEW) 10/28/17 17:30 Urine Bacteria NONE SEEN /hpf (NONE SEEN) 10/28/17 17:30 - Physical Exam Vitals and I&O: Vital Signs Temp 96.7 F 10/31/17 08:00 Pulse 68 10/31/17 08:19 Resp 18 10/31/17 08:00 BP 143/74 10/31/17 08:19 Pulse Ox 100 10/31/17 08:00 Intake & Output 10/30/17 10/31/17 10/31/17 18:59 06:59 18:59 Intake Total 250 15 Balance 250 15 Weight (lbs) 40.823 kg 40.823 kg Intake: Oral 250 15 Other: # Voids 3 4 # Bowel Movements 2 1 Stool Characteristics Soft Formed Brown Weight Source Bedscale Bedscale Active Medications: Current Medications Acetaminophen (Tylenol) 650 mg PO Q6H PRN PRN Reason: HEADACHE/TEMP ABOVE 100F Stop: 12/27/17 18:51 Last Admin: 10/31/17 03:36 Dose: 650 mg Haloperidol (Haldol) 1 mg PO BID PRN; Protocol PRN Reason: Agitation Stop: 12/29/17 11:14 Last Admin: 10/31/17 03:36 Dose: 1 mg Heparin Sodium (Porcine) (Heparin) 5,000 units SUBQ Q12HR [facility] Stop: 12/27/17 20:59 Last Admin: 10/31/17 08:20 Dose: 5,000 units Potassium Chloride 40 meq/Lidocaine HCl 25 mg/ Sodium Chloride 272.5 mls @ 68 mls/hr IV DAILY PRN PRN Reason: k level less than 3.2 Stop: 12/27/17 18:51 Magnesium Sulfate (Magnesium Sulfate Premix) 2 gm in 50 mls @ 25 mls/hr IV DAILY PRN PRN Reason: Magnesium level less than 1.6 Stop: 12/27/17 18:51 Sodium Chloride (Nacl 0.9%) 1,000 mls @ 75 mls/hr IV .[id number] [facility] Stop: 12/27/17 18:59 Last Admin: 10/31/17 01:23 Dose: 75 mls/hr Magnesium Oxide (Mag-Oxide) 400 mg PO BID PRN PRN Reason: Mg less than 1.9 Stop: 12/27/17 18:51 Metoprolol Tartrate (Lopressor) 25 mg PO BID DARRION Stop: 12/27/17 18:59 Last Admin: 10/31/17 08:19 Dose: 25 mg Morphine Sulfate (Morphine) 1 mg IVP Q4HR PRN PRN Reason: Severe Pain Stop: 12/27/17 18:51 Last Admin: 10/31/17 01:12 Dose: 1 mg Ondansetron HCl (Zofran) 4 mg IVP Q6H PRN PRN Reason: Nausea / Vomiting Stop: 12/27/17 18:51 Potassium Chloride (Klor-Con) 40 meq PO DAILY PRN PRN Reason: k level less than 3.5 Stop: 12/27/17 18:51 Zolpidem Tartrate (Ambien) 5 mg PO HS PRN PRN Reason: Insomnia Stop: 12/27/17 18:51 Last Admin: 10/31/17 04:15 Dose: 5 mg General: Other (not alert or oriented) HEENT: Atraumatic, PERRLA Neck: Supple, no JVD Cardiovascular: Regular rate, Normal S1, Normal S2 Lungs: Clear to auscultation Abdomen: Bowel sounds, Soft Psych/Mental Status: Other (labile mood) - Procedures Procedures: Procedures Procedure Code Date CLOSURE SKIN & SUBCUTANEOUS NEC 86.59 02/11/08 Assessment/Plan - Problem List Patient Problems: All Active Problems AGITATION AND CONFUSION (Acute) - Assessment Assessment: ME Psychosis with ADAM with exac Acc HTN Hyponatremia Unsteady gait - Plan Plan: PT eval. On prn Haldol per Psych. I'll add prn IM 2mg Haldol as 1 mg oral was effective last night. Met with family. FU on labs. Fall prec.
[2017-10-31] MEDS: Haloperidol Lactate 5 mg/mL 1mL Vial IM PRN ×2 (13:12→20:11)
--- NOTE | 2017-10-31 19:17 | Progress Notes ---
DATE: 10/31/2017 SUBJECTIVE: Staff was spoken to. The patient is interviewed. Mood is noted to be irritable. Affect is constricted. The patient's insight and judgment at this time are noted to be impaired. Impulse control seems poor. Coping skills are also noted to be very poor. She has been having difficult time to cope with the stress. The patient is reported to have been out of control and has been having difficult time last night. The patient has to be given a dose of Haldol IM. The patient at this time has been resting, but the patient is still confused and is not making much sense. Staff are reporting that during the daytime is not a problem, major problem is at night time. The patient is going to be restarted on 12.5 mg of the Seroquel and the patient is going to be followed up with supportive therapy. The patient continues to be very agitated and paranoid. ASSESSMENT: The patient is still paranoid and demented. PLAN: To add the Seroquel and then continue the Haldol and follow her up with the supportive therapy. JOB# [id number]
[2017-11-01 07:12] LABS: % EOSINOPHILS 1.4 % (0.0-5.0); % LYMPHOCYTES 13.9 % (20.0-50.0); % MONOCYTES 3.7 % (2.0-10.0); EOSINOPHILE ABSOLUTE 0.1 Th/cmm (0.1-0.4); HEMATOCRIT 29.1 % (41.0-60); HEMOGLOBIN 9.1 gm/dL (12-16); LYMPHOCYTE ABSOLUTE 1.3 Th/cmm (1.5-3.0); MEAN CORPUSCULAR HEMOGLOBIN 19.3 pg (27.0-31.0); MEAN CORPUSCULAR HGB CONC 31.4 pg (28.0-36.0); MEAN PLATELET VOLUME 10.8 fl; MONOCYTE ABSOLUTE 0.4 Th/cmm (0.3-1.0); NEUTROPHILE ABSOLUTE 7.9 Th/cmm (1.8-8.0); PLATELET COUNT 239 Th/cmm (150-400); RED BLOOD COUNT 4.73 Mil/cmm (3.80-5.20); RED CELL DISTRIBUTION WIDTH 13.6 % (11.5-20.0); WHITE BLOOD COUNT 9.7 Th/cmm (4.8-10.8)
[2017-11-01 07:25] LABS: ANION GAP 15.3 (7.0-16.0); BUN - UREA NITROGEN 18 mg/dL (7-25); CALCIUM SERUM 8.3 mg/dL (8.6-10.3); CARBON DIOXIDE 20.2 mEq/L (21.0-31.0); CHLORIDE 105 mEq/L (98-107); CREATININE - SERUM 0.8 mg/dL (0.6-1.2); GLUCOSE 69 mg/dL (70-105); POTASSIUM SERUM 3.5 mEq/L (3.5-5.1); SODIUM SERUM 137 mEq/L (136-145)
--- NOTE | 2017-11-01 08:36 | General Progress Note ---
Subjective - Review of Systems Service Date: 11/01/17 Subjective: Pt seen and eval. I've met with he daughter and son in law as well. They want their mother to go to [place] [facility], when she's stable. Pt seen by Dr. Keene. She's back on Seroquel now. Pt had episodes of severe agitation and psychosis last night. Per RN, oral Haldol was not effective. She required restraints unfortunately as she was pulling out her lines. No fevers or chills. No cough. No dysuria. No pain. No n,v,d or cp. Objective - Results Result Diagrams: 11/01/17 05:35 11/01/17 05:35 Recent Labs: Laboratory Last Values WBC 9.7 Th/cmm (4.8-10.8) 11/01/17 05:35 RBC 4.73 Mil/cmm (3.80-5.20) 11/01/17 05:35 Hgb 9.1 gm/dL (12-16) L 11/01/17 05:35 Hct 29.1 % (41.0-60) L 11/01/17 05:35 MCV 61.2 fl (81-100) L 10/31/17 05:45 MCH 19.3 pg (27.0-31.0) L 11/01/17 05:35 MCHC Differential 31.4 pg (28.0-36.0) 11/01/17 05:35 RDW 13.6 % (11.5-20.0) 11/01/17 05:35 Plt Count 239 Th/cmm (150-400) 11/01/17 05:35 MPV 10.8 fl 11/01/17 05:35 Neutrophils % 81.0 % (40.0-80.0) H 11/01/17 05:35 Band Neutrophils % 2 % (0-10) 10/30/17 04:45 Lymphocytes % 13.9 % (20.0-50.0) L 11/01/17 05:35 Monocytes % 3.7 % (2.0-10.0) 11/01/17 05:35 Eosinophils % 1.4 % (0.0-5.0) 11/01/17 05:35 Basophils % 0.0 % (0.0-2.0) 11/01/17 05:35 Neutrophils (Manual) 67 % (40-80) 10/30/17 04:45 Lymphocytes 23 % (20-50) 10/30/17 04:45 Monocytes 8 % (2-10) 10/30/17 04:45 Eosinophils 1 % (0-5) 10/29/17 04:55 Basophils 0 % (0-3) 10/28/17 15:52 Platelet Estimate ADEQUATE (NORMAL) 10/28/17 15:52 Microcytosis 2+ 10/30/17 04:45 RBC Morph Micro Appear ABNORMAL (NORMAL) 10/30/17 04:45 PT 11.0 SECONDS (9.5-11.5) 10/28/17 15:52 INR 1.06 (0.5-1.4) 10/28/17 15:52 PTT (Actin FS) 25.8 SECONDS (26.0-38.0) L 10/28/17 15:52 Sodium 137 mEq/L (136-145) 11/01/17 05:35 Potassium 3.5 mEq/L (3.5-5.1) 11/01/17 05:35 Chloride 105 mEq/L (98-107) 11/01/17 05:35 Carbon Dioxide 20.2 mEq/L (21.0-31.0) L 11/01/17 05:35 Anion Gap 15.3 (7.0-16.0) 11/01/17 05:35 BUN 18 mg/dL (7-25) 11/01/17 05:35 Creatinine 0.8 mg/dL (0.6-1.2) 11/01/17 05:35 Est GFR ( Amer) TNP 11/01/17 05:35 Est GFR (Non-Af Amer) TNP 11/01/17 05:35 BUN/Creatinine Ratio 22.5 11/01/17 05:35 Glucose 69 mg/dL (70-105) L 11/01/17 05:35 Hemoglobin A1c % 5.0 % (4.0-6.0) 10/28/17 15:52 Whole Bld Lactic Acid 1.22 mmol/L (0.60-1.99) 10/28/17 15:52 Calcium 8.3 mg/dL (8.6-10.3) L 11/01/17 05:35 Magnesium 1.9 mg/dL (1.9-2.7) 10/28/17 15:52 Total Bilirubin 0.6 mg/dL (0.3-1.0) 10/28/17 15:52 AST 24 U/L (13-39) 10/28/17 15:52 ALT 16 U/L (7-52) 10/28/17 15:52 Alkaline Phosphatase 101 U/L (34-104) 10/28/17 15:52 Creatine Kinase 32 U/L (30-223) 10/28/17 15:52 Troponin I 0.01 ng/mL (0.01-0.05) 10/28/17 15:52 Total Protein 7.0 gm/dL (6.0-8.3) 10/28/17 15:52 Albumin 3.7 gm/dL (3.7-5.3) 10/28/17 15:52 Globulin 3.3 gm/dL 10/28/17 15:52 Albumin/Globulin Ratio 1.1 (1.0-1.8) 10/28/17 15:52 Urine Source CATH 10/28/17 17:30 Urine Color YELLOW 10/28/17 17:30 Urine Clarity CLEAR (CLEAR) 10/28/17 17:30 Urine pH 7.5 (4.6 - 8.0) 10/28/17 17:30 Ur Specific [place] 1.015 (1.005-1.030) 10/28/17 17:30 Urine Protein NEGATIVE mg/dL (NEGATIVE) 10/28/17 17:30 Urine Glucose (UA) NEGATIVE mg/dL (NEGATIVE) 10/28/17 17:30 Urine Ketones NEGATIVE mg/dL (NEGATIVE) 10/28/17 17:30 Urine Blood NEGATIVE (NEGATIVE) 10/28/17 17:30 Urine Nitrate NEGATIVE (NEGATIVE) 10/28/17 17:30 Urine Bilirubin NEGATIVE (NEGATIVE) 10/28/17 17:30 Urine Urobilinogen 0.2 E.U./dL (0.2 - 1.0) 10/28/17 17:30 Ur Leukocyte Esterase NEGATIVE (NEGATIVE) 10/28/17 17:30 Urine RBC 0-2 /hpf (0-5) 10/28/17 17:30 Urine WBC 0-2 /hpf (0-5) 10/28/17 17:30 Ur Epithelial Cells OCCASIONAL /lpf (FEW) 10/28/17 17:30 Urine Bacteria NONE SEEN /hpf (NONE SEEN) 10/28/17 17:30 - Physical Exam Vitals and I&O: Vital Signs Temp 97.0 F 11/01/17 04:00 Pulse 74 11/01/17 08:23 Resp 18 11/01/17 04:00 BP 157/90 11/01/17 08:23 Pulse Ox 99 11/01/17 00:00 Intake & Output 10/31/17 11/01/17 11/01/17 18:59 06:59 18:59 Intake Total 1400 240 Balance 1400 240 Weight (lbs) 40.823 kg 40.823 kg Intake: Intake, IV Amount 1000 Sodium Chloride 0.9% 1, 1000 000 ml @ 75 mls/hr IV . [id number] [facility] Rx#:[id number] Oral 400 240 Other: # Voids 2 3 # Bowel Movements 1 0 Stool Characteristics Soft Soft Formed Formed Brown Brown Weight Source Bedscale Estimated Active Medications: Current Medications Acetaminophen (Tylenol) 650 mg PO Q6H PRN PRN Reason: HEADACHE/TEMP ABOVE 100F Stop: 12/27/17 18:51 Last Admin: 10/31/17 03:36 Dose: 650 mg Haloperidol (Haldol) 1 mg PO BID PRN; Protocol PRN Reason: Agitation Stop: 12/29/17 11:14 Last Admin: 11/01/17 06:02 Dose: 1 mg Haloperidol Lactate (Haldol) 1 mg IM Q6H PRN PRN Reason: Agitation Stop: 12/30/17 09:43 Last Admin: 10/31/17 20:11 Dose: 1 mg Heparin Sodium (Porcine) (Heparin) 5,000 units SUBQ Q12HR [facility] Stop: 12/27/17 20:59 Last Admin: 11/01/17 08:23 Dose: 5,000 units Potassium Chloride 40 meq/Lidocaine HCl 25 mg/ Sodium Chloride 272.5 mls @ 68 mls/hr IV DAILY PRN PRN Reason: k level less than 3.2 Stop: 12/27/17 18:51 Magnesium Sulfate (Magnesium Sulfate Premix) 2 gm in 50 mls @ 25 mls/hr IV DAILY PRN PRN Reason: Magnesium level less than 1.6 Stop: 12/27/17 18:51 Sodium Chloride (Nacl 0.9%) 1,000 mls @ 75 mls/hr IV .[id number] [facility] Stop: 12/27/17 18:59 Last Admin: 10/31/17 18:35 Dose: 75 mls/hr Magnesium Oxide (Mag-Oxide) 400 mg PO BID PRN PRN Reason: Mg less than 1.9 Stop: 12/27/17 18:51 Metoprolol Tartrate (Lopressor) 25 mg PO BID [facility] Stop: 12/27/17 18:59 Last Admin: 11/01/17 08:23 Dose: 25 mg Morphine Sulfate (Morphine) 1 mg IVP Q4HR PRN PRN Reason: Severe Pain Stop: 12/27/17 18:51 Last Admin: 10/31/17 01:12 Dose: 1 mg Ondansetron HCl (Zofran) 4 mg IVP Q6H PRN PRN Reason: Nausea / Vomiting Stop: 12/27/17 18:51 Potassium Chloride (Klor-Con) 40 meq PO DAILY PRN PRN Reason: k level less than 3.5 Stop: 12/27/17 18:51 Quetiapine Fumarate (Seroquel) 12.5 mg PO HS DARRION PRN Reason: Protocol Stop: 12/30/17 20:59 Last Admin: 10/31/17 20:36 Dose: 12.5 mg Zolpidem Tartrate (Ambien) 5 mg PO HS PRN PRN Reason: Insomnia Stop: 12/27/17 18:51 Last Admin: 10/31/17 04:15 Dose: 5 mg General: Other (Alert to name. Agitated. ) HEENT: Atraumatic, PERRLA Neck: Supple, no JVD Cardiovascular: Regular rate, Normal S1, Normal S2 Lungs: Clear to auscultation Abdomen: Bowel sounds, Soft Psych/Mental Status: Other (labile mood) - Procedures Procedures: Procedures Procedure Code Date CLOSURE SKIN & SUBCUTANEOUS NEC 86.59 02/11/08 Assessment/Plan - Problem List Patient Problems: All Active Problems AGITATION AND CONFUSION (Acute) - Assessment Assessment: ME Psychosis with ADAM with exac Acc HTN Hyponatremia Unsteady gait - Plan Plan: PT eval. On prn Haldol per Psych. I'll add prn IM 2mg Haldol as 1 mg oral was effective last night. Met with family. FU on labs. Fall prec. Dr. Keene added Seroquel.
[2017-11-01 09:46] LABS: MEAN CELL VOLUME 61.5 fl (81-100)
--- NOTE | 2017-11-01 16:21 | Discharge Summary ---
DATE OF DISCHARGE: 11/01/2017 DATE OF DISCHARGE: To Geropsych unit of the hospital, 11/01/2017. CAUSE OF ADMISSION: The patient is a confused 87-year-old female. 0 has history of mood disorder along with Alzheimer dementia. From the last couple of days, she was experiencing more muscle weakness along with worsening confusion and psychosis. She was brought to the ER where she was found to have accelerated hypertension and hyponatremia. She was admitted for further workup and treatment. ADMITTING DIAGNOSES: 1. Metabolic encephalopathy. 2. Psychosis. 3. Accelerated hypertension. 4. Hyponatremia. 5. Unsteady gait. 6. Dementia, Alzheimer's type with exacerbation. DISCHARGE DIAGNOSES: 1. Metabolic encephalopathy. 2. Psychosis. 3. Accelerated hypertension. 4. Hyponatremia. 5. Unsteady gait. 6. Dementia, Alzheimer's type with exacerbation. SUMMARY OF HOSPITAL COURSE: The patient was spiking fevers, and original blood cultures were done. Chest x-ray and UA were done as well. Blood pressure improved after she was placed on metoprolol [address] Keene was the psychiatrist on the case. She was started on Seroquel, then it was discontinued and started on p.r.n. Haldol; however, she was still very psychotic and agitated with Haldol, so the Seroquel was resumed today. PT evaluation was done. She has been walking with PT as of today. She was transferred to Geropsych unit of the hospital. Physical exam and labs are as charted. PROGNOSIS: Fair. ACTIVITY: As tolerated. DIET: Cardiac. CONSULTS: Dr. Keene for Psychiatry. JOB# [id number]
== END 2017-11-01 11:05 | DRG 56 ==
LOC: ER 15:31 → MSI 18:15
PROVIDERS: ADMIT General Practice; ATTEND General Practice
DX: G30.9 Alzheimer's disease, unspecified (principal); G93.41 Metabolic encephalopathy; E87.1 Hypo-osmolality and hyponatremia; F02.81 Dementia in other diseases classified elsewhere, unspecified severity, with behavioral disturbance; F29 Unspecified psychosis not due to a substance or known physiological condition; R26.81 Unsteadiness on feet; I10 Essential (primary) hypertension; D64.9 Anemia, unspecified; F39 Unspecified mood [affective] disorder; M62.81 Muscle weakness (generalized); Z82.49 Family history of ischemic heart disease and other diseases of the circulatory system
CPT/HCPCS: 36415-UA; 71045-TC; 80048-TC; 80053-TC; 81001-TC; 82550-TC; 82948-90; 83036-90; 83605; 83735-TC; 84484-TC; 85007-TC; 85025-TC; 85027-TC; 85610-TC; 93005; 96375; 97530; J0696; J1630; J1644; J2001; J2060; J3480; J7030; X3904; Z7610

== ENCOUNTER 2017-11-01 11:13 | Inpatient (IN) | payer MEDICARE ==
[2017-11-01 12:16] VITALS: BP 148/93
[2017-11-01] MEDS ORDERED: Maalox 30 mL Cup PO PRN (12:17)
[2017-11-01] MEDS ORDERED: Magnesium Hydroxide (MOM) 30 mL UDC PO PRN (12:17)
[2017-11-01] MEDS ORDERED: Haloperidol Lactate 5 mg/mL 1mL Vial IM PRN (12:21)
[2017-11-01] MEDS ORDERED: Potassium Chloride 20 mEq ER Tab PO PRN (12:48)
--- NOTE | 2017-11-02 03:02 | Psychosocial Evaluation ---
DATE OF SERVICE: 11/01/2017 IDENTIFYING DATA: The patient is an 87-year-old woman, resident of a longterm facility. Information obtained by directly interviewing the patient as well as reviewing the admission papers and they are reliable. JUSTIFICATION OF HOSPITALIZATION: The patient is admitted here on a voluntary basis in view of her acute agitation and psychosis. CHIEF COMPLAINT: "I need to talk to the doctor." HISTORY OF PRESENT ILLNESS: This is the first psychiatric hospitalization to [facility] for this patient, who is getting easily agitated and has been acutely confused. The patient was seen by me for a psychiatric evaluation on 10/28/2017 and the patient could not be contained at a lower level of care and the patient was transferred over here. The patient was maintained on 25 mg of the Seroquel, which was making her to be too lethargic and the patient has to be given a dose of Haldol to contain her. PAST PSYCHIATRIC HISTORY: Not known. MEDICAL HISTORY AND PHYSICAL EXAMINATION: Requested to done by Dr. Tilley and is noted to be significant for hypertension. SUBSTANCE ABUSE HISTORY: None. PHYSICAL OR SEXUAL ABUSE HISTORY: None. LEGAL PROBLEMS: None at this time. STRENGTH AND ASSETS: The patient seems to be confused and is not able to provide much of information. MENTAL STATUS EXAMINATION: The patient is an 87-year-old woman, thin built, superficially cooperative. Eye contact is poor. Mood is noted to be irritable. Affect is constricted. Insight and judgment are very much impaired. The patient's short and retirement are noted to be very poor. The patient is paranoid at this time and is also having visual hallucinations. The patient is alert and awake and the patient has no clue that she is in the hospital. DIAGNOSTIC IMPRESSION: AXIS I: Psychotic disorder, not otherwise specified. 1b. Dementia and behavioral change, secondary trait. AXIS II: None. AXIS III: ____ IMMEDIATE TREATMENT PLAN: The patient is going to be started on the haloperidol, which is going to be given as 1 mg b.i.d. p.r.n. and the patient is going to be started with the 12.5 mg of the Seroquel at night time and then the patient is also going to be given at 12.5 mg of the Seroquel daily. The patient is going to be closely monitored with regards to her blood pressure. ESTIMATED LENGTH OF STAY: 5-7 days. DISCHARGE CRITERIA: The patient is no longer a threat to self or others and be able to cope up with the stress. [facility]# [id number]
[2017-11-02] MEDS: Aspirin 81mg Chewable Tab PO SCH (09:02)
--- NOTE | 2017-11-02 13:11 | History & Physical ---
ADMIT DATE: 11/01/2017 INFORMANT: AREN sanabria 2 to self and police. HISTORY OF PRESENT ILLNESS: An 87-year-old female presented to the hospital with mood disorder along with Alzheimer's dementia exacerbation. The patient was admitted to [facility] for continued workup. The patient was experiencing muscle weakness and worsening confusion. During the hospitalization, it was found that the patient was having elevated temperatures and blood cultures were performed at that time, chest x-ray and UA were ordered. The urinalysis was negative for urinary tract infection. Blood cultures revealed no growth and MRSA nares were negative at that time. Chest x-ray revealed no acute pulmonary process. Therefore, there were no underlying infection that was causing the Alzheimer's dementia exacerbation. It was deemed that the patient would require continued psychiatric treatment prior to going home. So, the patient was cleared from a medical standpoint and was discharged from the [facility] to [facility] [place] for continued management by Psychiatry. PAST MEDICAL HISTORY: Mood disorder, Alzheimer's dementia, and hypertension. PAST SURGICAL HISTORY: No major surgeries. SOCIAL HISTORY: No drugs, alcohol, or tobacco. FAMILY HISTORY: Noncontributory. ALLERGIES: No known drug allergies. REVIEW OF SYSTEMS: GENERAL: Positive for confusion, worsened fatigue. Denies chills. HEENT: Denies decreased vision, decreased hearing or difficulty swallowing. CARDIOVASCULAR: Denies chest pain, shortness of breath, palpitations. RESPIRATORY: Denies cough, wheeze, or shortness of breath. GASTROINTESTINAL: Denies abdominal pain, nausea or vomiting. SKIN: No rashes, open wounds, or itching. PSYCHIATRIC: Positive for psychosis. MUSCULOSKELETAL: Admits to weakness and unsteady gait. PHYSICAL EXAMINATION: VITAL SIGNS: 98.6, heart rate is 82, respirations 16, and blood pressure is 128/92. GENERAL: NAD. The patient is confused and is calling out sound that is not there. HEENT: PERRLA, EOMI. NECK: Supple. Trachea midline. CARDIOVASCULAR: Regular rate and rhythm. RESPIRATORY: CTA bilaterally. No wheeze, rales, or rhonchi. ABDOMEN: Soft, nontender, and nondistended. Bowel sounds positive in all 4 quadrants. SKIN: No rashes, open wounds. MUSCULOSKELETAL: Muscle strength testing in bilateral upper and lower extremities is 4/5 and she is cachectic. LABORATORY DATA: No new labs. ASSESSMENT AND PLAN: Metabolic encephalopathy secondary to Alzheimer's dementia exacerbation, mood disorder, hypertension, muscle weakness, unsteady gait, hyponatremia, and psychosis. PLAN: Admit to [facility]. Psych is following. Metoprolol was continued. Tylenol as needed for mild pain and fevers. Haldol 1 mg p.o. b.i.d. p.r.n., Ativan 0.5 mg q.4h. p.r.n. for agitation or anxiety. Continue metoprolol 25 mg p.o. b.i.d. for hypertension, Seroquel 12.5 mg p.o. at bedtime and 12.5 mg p.o. daily was ordered by Tiff callaway as needed for insomnia. [facility]# [id number]
[2017-11-02] MEDS: Ferrous Sulfate 325 MG TAB PO SCH (16:12)
--- NOTE | 2017-11-03 04:01 | Progress Notes ---
DATE: 11/02/2017 SUBJECTIVE: Staff was spoken to. The patient is interviewed. Mood is irritable. Affect is constricted. The patient has been screaming and yelling and the patient is confused and has been responding to internal stimuli. The patient is being maintained with the Haldol on a p.r.n. of Seroquel. Because of the patient's drowsiness, we have been closely monitoring and then going with a low dose of the Seroquel at this time. JOB# [id number]
[2017-11-03] MEDS: Ferrous Sulfate 325 MG TAB PO SCH ×2 (08:29→16:36)
[2017-11-03] MEDS: Aspirin 81mg Chewable Tab PO SCH (08:29)
--- NOTE | 2017-11-03 17:18 | Progress Notes ---
DATE: 11/03/2017 PSYCHIATRIC PROGRESS NOTE SUBJECTIVE: Staff was spoken to. The patient is interviewed. Mood is noted to be irritable. Affect is constricted. Insight and judgment are noted to be still impaired. Impulse control is noted to be limited. Coping skills are noted to be limited. The patient has been very agitated and patient has been given the 12.5 mg of the Seroquel twice a day. The patient has been very lethargic. ____ higher dose of the Seroquel, but the patient needs to be closely monitored. The patient at this time is not able to contract for safety and the patient is going to be closely monitored. JOB# [id number]
[2017-11-04] MEDS: Ferrous Sulfate 325 MG TAB PO SCH ×2 (08:53→16:45)
[2017-11-04] MEDS: Aspirin 81mg Chewable Tab PO SCH (08:53)
--- NOTE | 2017-11-04 13:08 | Consultation ---
DATE OF CONSULTATION: 11/02/2017 REQUESTING PHYSICIAN: Lula Keene M.D. TYPE OF CONSULTATION: Psychology. HISTORY OF PRESENT ILLNESS: The patient is an 87-year-old female who is a resident of a halfway facility. This information is not specific in the record. The patient is being admitted due to acute agitation and possible psychosis. The patient appears to be agitated at times and profoundly confused. The patient's record indicates that the patient had been living with her family, and according to her son was unable to be maintained effectively at home. The patient was placed in a halfway facility and the family feels this was an inappropriate placement. The patient's son is present during this clinical interview and offered collateral information as well as making the request for replacement. director of child welfare services is involved and offered a possible place at [facility]. The patient seems to be less agitated at this time due to the presence of her son. The patient had been given a dose of Haldol originally to contain her on the unit according to the staff here. The patient denied any suicidal ideation, plan, or intention or any wish to . PAST PSYCHIATRIC HISTORY: Unknown. PAST MEDICAL HISTORY: Please see history and physical by Dr. Tilley. SUBSTANCE ABUSE HISTORY: None. PSYCHOSOCIAL HISTORY: The patient did not answer questions about occupational or educational history or anglican affiliation. The patient's son was present during the clinical interview and offered some of this information. Please see the medical record. The patient denied any abuse history or legal issues at this time which are corroborated by the family. The patient is not offering much information at this time. MENTAL STATUS EXAMINATION: The patient appears to be her stated age. The patient's attitude is superficially cooperative. Eye contact is poor and avoidant. Speech is slow, soft and delayed. Mood is irritable. Affect is constricted. Thought process shows to be confused. The patient denied having any auditory or visual hallucinations. There is some evidence of suspiciousness and possible paranoid ideation. The patient's behavior is redirectable on the unit at this time. Impulse control is fair to poor. Concentration is poor. The patient was unable to participate in the memory assessment. Immediate and short-term memory seemed to be impaired. Long-term memory needs further evaluation, but appears to be impaired. The patient's sensorium is alert and oriented to person and place, i.e. that she is in the hospital. The patient did not participate in the interpretation of proverbs. Insight is poor. Judgment is compromised. DIAGNOSTIC IMPRESSION: AXIS I: 1. Psychotic disorder, not otherwise specified. 2. Dementia with behavioral disturbance. AXIS II: Deferred. AXIS III: Please see history and physical by Dr. Tilley. TREATMENT PLAN: The patient is being seen by Dr. Keene for psychiatric evaluation and for the management of the patient's psychotropic medications. We will provide coping strategies for phase of life issues. We will assist the patient and her family on possible placement near the family home. The patient's son is present during the clinical interview and is one of the patient's caregivers and is very supportive. We will provide reality orientation and reality integration. We will encourage the patient to verbalize her concerns with staff versus acting out. The patient had been given Haldol 1 mg IM p.r.n. initially to assist with calming the patient since she seemed to be un-redirectable and her behavior uncontrollable on admission. The patient was started on 12.5 mg of Seroquel at nighttime according to Dr. Keene. She will be closely monitored. We will continue supportive therapy for the patient as well as the family during the course of her hospital stay. Thank you Dr. Keene for this consult and the opportunity to participate with you in this patient's care. JOB# [id number] MTDD
--- NOTE | 2017-11-04 17:19 | Progress Notes ---
DATE: 11/04/2017 PSYCHIATRIC PROGRESS NOTE SUBJECTIVE: Staff was spoken to. The patient is interviewed. Mood is noted to be irritable. Affect is constricted. Insight and judgment at this time are noted to be very much impaired. Impulse control seems to be poor. Coping skills are also noted to be very poor. The patient has been having difficult time to cope with the stress. The patient's family came to visit the patient and they are pleased with the patient's behavior compared to before; however, the patient is still confused, demented and agitated. PLAN: To continue the patient with the supportive therapy and followup. JOB# [id number]
[2017-11-05] MEDS: Aspirin 81mg Chewable Tab PO SCH (08:15)
[2017-11-05] MEDS: Ferrous Sulfate 325 MG TAB PO SCH ×2 (08:15→16:40)
--- NOTE | 2017-11-06 02:04 | Progress Notes ---
DATE: 11/04/2017 PSYCHIATRIC PROGRESS NOTE SUBJECTIVE: Staff was spoken to. The patient is interviewed. Mood is noted to be irritable. Affect is constricted. Coping skills are noted to be very poor. The patient is still very confused and demented. The patient has been getting easily agitated. The patient needs to be redirected constantly. The patient's short-term and long-term memory are still noted to be very poor. ASSESSMENT: The patient is still demented and psychotic. PLAN: To continue the patient with the supportive therapy. I encouraged the patient to verbalize the concerns. We will continue the patient on low dose of Seroquel. JOB# [id number]
[2017-11-06] MEDS: Aspirin 81mg Chewable Tab PO SCH (08:42)
[2017-11-06] MEDS: Ferrous Sulfate 325 MG TAB PO SCH ×2 (08:43→17:29)
--- NOTE | 2017-11-06 21:25 | Progress Notes ---
DATE: 11/06/2017 SUBJECTIVE: Staff was spoken to. The patient is interviewed. Mood is irritable. Affect is constricted. Insight and judgment are noted to be impaired. Impulse control seems to be poor. Coping skills are also noted to be very poor. The patient has been very disruptive and has been trying to slide out of the GD chair. The patient has no side effects to her medications. PLAN: The patient is currently on 12.5 mg of the Seroquel, which is going to be increased to 25 mg twice a day and the patient is going to be followed up with the supportive therapy. Please note that the patient is very disruptive and confused and is not ready to be discharged to a lower level of care yet. [facility]# [id number]
[2017-11-07] MEDS: Aspirin 81mg Chewable Tab PO SCH (09:15)
[2017-11-07] MEDS: Ferrous Sulfate 325 MG TAB PO SCH ×2 (09:15→16:36)
--- NOTE | 2017-11-08 03:57 | Progress Notes ---
DATE: 11/07/2017 SUBJECTIVE: Staff was spoken to. The patient is interviewed. Mood is noted to be irritable. Affect is constricted. Insight and judgment are noted to be impaired. Impulse control is noted to be poor. Coping skills are noted to be poor. The patient is currently on 25 mg twice a day of the Seroquel and the patient has been trying to sleep out of the GD chair. The patient has no insight into her illness. Coping skills are noted to be very poor. In view of her age, we are going to be very carefully with regards increasing the doses of the medications. ASSESSMENT: The patient is still a high risk for fall and the patient is completing treatment. Apparently, the patient is demented and confused at this time. PLAN: To continue the patient with the current medications and followup. JOB# [id number]
[2017-11-08] MEDS: Ferrous Sulfate 325 MG TAB PO SCH ×2 (09:10→17:41)
[2017-11-08] MEDS: Aspirin 81mg Chewable Tab PO SCH (09:10)
--- NOTE | 2017-11-08 23:55 | Progress Notes ---
DATE: 11/08/2017 SUBJECTIVE: Staff was spoken to. The patient is interviewed. Mood is irritable. Affect is constricted. The patient has been very confused and demented and has been trying to slide out of the wheelchair. The patient has no insight into her illness. The patient is being maintained on Seroquel 25 mg twice a day and Haldol is being given as a p.r.n. dosing. The patient's coping skills are noted to still poor. The patient has been a major behavioral problem on the unit. ASSESSMENT: The patient is still demented and psychotic. PLAN: To continue the patient with the current medications and follow. [facility]# [id number]
--- NOTE | 2017-11-09 07:24 | Diagnostic Imaging Report ---
CHEST X-RAY: AP view INDICATION: Cough COMPARISON: None FINDINGS: Patient is rotated. Chronic changes are seen with no focal bulge effusions. Heart size is normal. Tortuous ectatic aorta is noted with atherosclerosis. Scoliosis is noted. IMPRESSION: No focal consolidation identified. Tortuous senescent and ectatic aorta with atherosclerosis.
[2017-11-09] MEDS: Ferrous Sulfate 325 MG TAB PO SCH ×2 (09:20→16:27)
[2017-11-09] MEDS: Aspirin 81mg Chewable Tab PO SCH (09:20)
--- NOTE | 2017-11-09 19:15 | Progress Notes ---
DATE: 11/09/2017 SUBJECTIVE: Staff was spoken to. The patient is interviewed. Mood is noted to be irritable. Affect is constricted. The patient has been having difficult time to cope with the stress. The patient is continuously sliding from the GD chair. The patient is to be propped up. The patient is confused and demented. Coping skills are noted to be still poor. PLAN: To continue the patient with the Seroquel and follow the patient. JOB# [id number]
[2017-11-10] MEDS: Ferrous Sulfate 325 MG TAB PO SCH ×2 (09:20→16:26)
[2017-11-10] MEDS: Aspirin 81mg Chewable Tab PO SCH (09:21)
--- NOTE | 2017-11-11 22:52 | Discharge Summary ---
DATE OF DISCHARGE: 11/11/2017 IDENTIFYING DATA: The patient is an 87-year-old woman, resident of a nursing home facility. JUSTIFICATION OF HOSPITALIZATION: The patient is admitted on a voluntary basis in view of her acute agitation and psychosis. CHIEF COMPLAINT: "I need to talk to the doctor." DIAGNOSES AT THE TIME OF ADMISSION: AXIS IA: Psychotic disorder, not otherwise specified. AXIS 1B: Dementia and behavioral change, secondary trait. AXIS II: None. AXIS III: As per Dr. Tilley. HISTORY OF PRESENT ILLNESS: Please refer to the 11/01/2017 dictation done by me. Physical examination at the time of the hospitalization was done by Dr. Haris Sultana and is noted to be significant for hypertension, hyponatremia. HOSPITAL COURSE AND RESPONSE TO TREATMENT: The patient has been observed on inpatient unit, provided with supportive psychotherapy. In view of her age, we have been very careful. The patient was given 25 mg of the Seroquel and was gradually increased to 25 mg twice a day. The patient constantly has been trying to slide out of the Gd chair. The patient has to be given a dose of Ativan to calm her down. The patient's family came on 11/10/2017 and wanted to get the patient to [facility] in [place], the patient stating that they have been able to secure a bed over there and hence the patient was discharged. MENTAL STATUS EXAMINATION: At the time of discharge, patient's mood is noted to be less irritable. Affect is appropriate. Not suicidal or homicidal. Insight and judgment are noted to be improving. Impulse control seems to be fair. No side effects to the medications are noted. The patient has been able to verbalize the concerns rather than to act out, but the patient gets to this sundowning problems towards the end of the day and patient gets agitated. The patient has been able to respond to the low dose of benzodiazepine. DIAGNOSES AT THE TIME OF DISCHARGE: AXIS IA: Dementia and behavioral change, secondary trait. AXIS 1B: Psychosis, not otherwise specified. AXIS II: None. AXIS III: Hypertension, arthritis, hyponatremia. AFTERCARE PLAN: The patient is discharged to the nursing home facility for further followup. JOB# [id number]
== END 2017-11-11 09:15 | DRG 56 ==
LOC: GERO2 11:13
PROVIDERS: ADMIT Psychiatry & Neurology Psychiatry; ATTEND Psychiatry & Neurology Psychiatry
DX: G30.9 Alzheimer's disease, unspecified (principal); F02.81 Dementia in other diseases classified elsewhere, unspecified severity, with behavioral disturbance; G93.41 Metabolic encephalopathy; E87.1 Hypo-osmolality and hyponatremia; R64 Cachexia; Z68.1 Body mass index [BMI] 19.9 or less, adult; F29 Unspecified psychosis not due to a substance or known physiological condition; F39 Unspecified mood [affective] disorder; I10 Essential (primary) hypertension; R26.81 Unsteadiness on feet; M19.90 Unspecified osteoarthritis, unspecified site
CPT/HCPCS: 71045-TC; J2060; Z7610

== ENCOUNTER 2017-11-12 15:18 | Inpatient (IN) | payer MEDICARE ==
--- NOTE | 2017-11-12 15:27 | ED Physician Chart ---
ED Chief Complaint/HPI - Patient Information Date Seen:: 11/12/17 Time Seen:: 15:00 Chief Complaint:: Agitation History of Present Illness:: onset x 3 days of agitation, hostile behavior, and confusion; no report of trauma, H/As, neck pain, C/P, SOB, cough, Abd. pain, A/N/V/D/c, fever, chills, or urinary s/s Allergies:: Allergies Allergy/AdvReac Type Severity Reaction Status Date / Time No Known Allergies Allergy Verified 10/28/17 15:40 Historian:: Patient, EMS Review:: Nurse's Note Reviewed, Old Chart Reviewed, EMS run form Reviewed ED Review of Systems - Review of Systems General/Constitutional: No fever, No chills, No weight loss, No weakness, No diaphoresis, No edema, No loss of appetite Skin: No skin lesions, No rash, No bruising Head: No headache, No light-headedness Eyes: No loss of vision, No pain, No diplopia ENT: No earache, No nasal drainage, No sore throat, No tinnitus Neck: No neck pain, No swelling, No thyromegaly, No stiffness, No mass noted Cardio Vascular: No chest pain, No palpitations, No PND, No orthopnea, No edema Pulmonary: No SOB, No cough, No sputum, No wheezing GI: No nausea, No vomiting, No diarrhea, No pain, No melena, No hematochezia, No constipation, No hematemesis G/U: No dysuria, No frequency, No hematuria, No nacturia Rn Paralegal: No vaginal discharge, No abnormal vaginal bleed, No contraction Musculoskeletal: No bone or joint pain, No back pain, No muscle pain Endocrine: No polyuria, No polydipsia Psychiatric: Prior psych history, No depression, Anxiety, No suicidal ideation, No homicidal ideation, No auditory hallucination, No visual hallucination Hematopoietic: No bruising, No lymphadenopathy Allergic/Immuno: No urticaria, No angioedema Neurological: No syncope, No focal symptoms, No weakness, No paresthesia, No headache, No seizure, No dizziness, Confusion, No vertigo ED Past Medical History - Past Medical History Obtainable: Yes Past Medical History: HTN, Arthritis, Dementia Family History: HTN Social History: Non Smoker, No Alcohol, No Drug Use, Single, Care Facility Surgical History: None Psychiatricy History: Bipolar, Dementia Medication: Reviewed Family Medical History - Family Member Mother History Unknown: Yes ED Physical Exam - Physical Examination General/Constitutional: Awake, Well-developed, well-nourished, Alert, No distress, GCS 15, Non-toxic appearing, Ambulatory Head: Atraumatic Eyes: Lids, conjuctiva normal, PERRL, EOMI Skin: Nl inspection, No rash, No skin lesions, No ecchymosis, Well hydrated, No lymphadenopathy ENMT: External ears, nose nl, TM canals nl, Nasal exam nl, Lips, teeth, gums nl , Oropharynx nl, Tonsils nl Neck: Nontender, Full ROM w/o pain, No JVD, No nuchal rigidity, No bruit, No mass, No stridor Respiratory: Nl effort/Exclusion, Clear to Auscultation, No Wheeze/Rhonchi/Rales Cardio Vascular: RRR, No murmur, gallop, rubs, NL S1 S2, Carotid/Femoral/Distal pulses equal bilaterally GI: No tenderness/rebounding/guarding, No organomegaly, No hernia, Normal BS's, Nondistended, No mass/bruits, No McBurney tenderness : No CVA tenderness Extremities: No tenderness or effusion, Full ROM, normal strength in all extremities, No edema, Normal digits & nails Neuro/Psych: Alert/oriented, DTR's symmetric, Normal sensory exam, Normal motor strength, Judgement/insight normal, Mood normal, Normal gait, No focal deficits Other Neuro/Psych comments:: + Psychomotor Agitation; no SIs; Mood/Affect: Labile Misc: Normal back, No paraspinal tenderness ED Septic Shock - . Is Septic Shock (SBP<90, OR Lactate>4 mmol\L) present?: No ED Reassessment (Disposition) - Diagnosis Diagnosis:: Dx: Agitation; Psychosis; Bipolar Disorder; Dementia; Medical Clearance - Aftercare/Follow up Instructions Aftercare/Follow-Up Instructions:: Counseled pt regarding lab results/diagnosis & need follow up, Counseled pt & family regarding lab results/diagnosis & need follow up - Patient Disposition Discharge/Transfer:: Acute Care w/in this hosp Admitted to:: [facility] Condition at Disposition:: Stable, Improved
[2017-11-13 00:56] VITALS: BP 159/90
--- NOTE | 2017-11-13 07:01 | History & Physical ---
ADMIT DATE: 11/12/2017 CHIEF COMPLAINT: Confusion, lethargy, and psychosis. HISTORY OF PRESENT ILLNESS: The patient is a very confused 87-year-old female. She was recently admitted under wi. [facility] after she completed her stay in the med-surg unit, followed by Geropsych Unit. She was sent out again yesterday because of psychosis, hallucinations and worsening lethargy. She was admitted to our psych unit. She has been extremely agitated and violent as well. PAST MEDICAL HISTORY: Significant for mood disorder, psychosis, Alzheimer's dementia, and hypertension. SOCIAL HISTORY: No history of alcohol, tobacco, or drug abuse. FAMILY HISTORY: Noncontributory. ALLERGIES: No known drug allergies. SURGICAL HISTORY: No recent major surgeries. REVIEW OF SYSTEMS: GENERAL: Positive recent confusion, worsening fatigue and lethargy. HEENT: No recent head trauma or changes in vision, taste, hearing, or smell. NECK: No recent tracheal deviation or JVD. GASTROINTESTINAL: Negative for recent nausea or vomiting. ABDOMEN: No recent pain or distention. SKIN: No recent rashes. PSYCHIATRIC: Positive for psychosis, agitation and violent behavior and irritability and worsening confusion. NEUROLOGIC: Positive for worsening confusion. No history of stroke or seizure. EXTREMITIES: No recent edema. MUSCULOSKELETAL: Positive history of DJD and unsteady gait. PHYSICAL EXAMINATION: VITAL SIGNS: Showed the following; temperature 97.8 degrees, heart rate is 101, respirations 20, blood pressure 147/81 and last night it was 159/90. Currently, no pain. GENERAL: No acute distress. She is awake, alert to name only. She is extremely irritable and agitated and confused. HEENT: No acute issues. NECK: Trachea is midline. CARDIOVASCULAR: She has sinus tachycardia when she is agitated, but no murmurs. ABDOMEN: Nontender, nondistended. SKIN: No rashes. PSYCHIATRIC: She has labile mood and is irritable. EXTREMITIES: No edema. MUSCULOSKELETAL: Decreased range of motion in upper and lower extremities. RESPIRATORY: Decreased breath sounds bilaterally. NEUROLOGIC: No evidence of acute stroke or seizure activity. LABORATORY DATA: CBC and CMP have been ordered. ASSESSMENT: 1. Metabolic encephalopathy. 2. Psychosis. 3. Hypertension, out of control. 4. Dementia, Alzheimer's type with exacerbation. 5. Unsteady gait. PLAN: Follow up on the hemoglobin A1c, CBC, CMP, lipid panel, RPR as well. The patient is currently on Haldol [address] Keene will be the psychiatrist on the case. She is already on Lopressor 25 mg b.i.d., continue Depakote as well. Prognosis is guarded. Continue fall precautions. Once she is more stable, psychologically she can benefit from PT eval as well. JOB# [id number]
[2017-11-13] MEDS: Aspirin 81mg Chewable Tab PO SCH (09:20)
--- NOTE | 2017-11-13 14:12 | Progress Notes ---
DATE: 11/12/2017 IDENTIFYING DATA: The patient is an 87-year-old woman recently discharged from the hospital to [facility]. JUSTIFICATION OF HOSPITALIZATION: The patient has been brought back on the same day because of her acute agitation and the patient could not be contained at a lower level of care. The patient is screaming and yelling and has been banging in the GD chair constantly. PAST PSYCHIATRIC HISTORY: Please refer to the above. MEDICAL HISTORY: Physical examination is requested by Dr. Tilley. SUBSTANCE ABUSE HISTORY: None. PHYSICAL OR SEXUAL ABUSE HISTORY: None. Legal problem none at this time. MENTAL STATUS EXAMINATION: The patient is an 87-year-old thin built, superficially cooperative. Eye contact is poor. The patient has short-term as well as long-term memory deficit. The patient has constantly been hitting the GD chair. PLAN: The patient has no insight into her illness. The patient is not able to be discharged to a lower level of care because of her agitation. The patient at this time is going to be placed on the Haldol because of the Seroquel that was placed before was not of any help and the patient is going to be placed on the Ativan on a 0.5 mg q. 6 hours p.r.n. and Depakote 125 mg twice a day. The patient is going to be closely monitored. Once stabilized, the patient is going to be discharged. Estimated length of stay 3-5 days. DISCHARGE CRITERIA: When she no longer a threat to self or others and be able to cope up with the stress. [facility]# [id number]
[2017-11-14] MEDS: Aspirin 81mg Chewable Tab PO SCH (09:17)
--- NOTE | 2017-11-15 03:55 | Progress Notes ---
DATE: 11/14/2017 SUBJECTIVE: The staff was spoken to. The patient is interviewed. Mood is noted to be irritable. Affect is constricted. The patient has been still very disruptive. Insight and judgment at this time are very much impaired. The patient is currently on haloperidol and does not seem to be responding and the patient has been having difficult time to cope with the stress. No side effects to the medications are noted at this time. The patient has been placed on 1 mg twice a day of the Haldol at this time, but still the patient has been screaming and yelling and has been hitting. In view of her acute agitation, it is decided to start the patient on Risperdal and encouraged the patient to verbalize the concerns rather than to act out. The patient is going to be started with 0.5 mg twice a day of Risperdal and the Haldol is going to be given as a p.r.n. and followed up with supportive therapy. The patient is going to be started on 0.5 mg twice a day and the Depakote is going to be continued. ASSESSMENT: The patient is still grossly psychotic. PLAN: To continue the patient with supportive therapy, encouraged the patient to verbalize the concerns rather than to act out. [facility]# [id number]
[2017-11-15] MEDS: Aspirin 81mg Chewable Tab PO SCH (08:49)
--- NOTE | 2017-11-15 17:47 | Progress Notes ---
DATE: 11/15/2017 SUBJECTIVE: Staff was spoken to. The patient is interviewed. Mood is noted to be irritable. Affect is constricted. Insight and judgment are noted to be still impaired. Impulse control is noted to be poor. Coping skills are noted to be very poor. The patient is still impulsive and has been banging on the Lisa chair. The patient has no insight into her illness. Coping skills are noted to be extremely poor. The patient is very impulsive, screaming and yelling when she does not get her way. ASSESSMENT: The patient is still demented and psychotic. PLAN: To continue the patient with the supportive therapy. I encouraged the patient to verbalize the concerns rather than to act out. Please note that the patient is not ready to be discharged to a lower level of care yet. JOB# [id number]
[2017-11-16] MEDS: Aspirin 81mg Chewable Tab PO SCH (08:54)
--- NOTE | 2017-11-17 03:04 | Progress Notes ---
DATE: 11/16/2017 SUBJECTIVE: Staff was spoken to. The patient is interviewed. Mood is noted to be irritable. Affect is constricted. Insight and judgment at this time are noted to be very much impaired. Impulse control is noted to be poor. Coping skills are noted to be very poor. The patient has been having difficult time to cope with the stress. No side effects to the medications are noted. The patient has been very agitated most of the time. The patient has been banging on the table all the time. ASSESSMENT: The patient is still impulsive. PLAN: To continue the patient with the current medications and add a low dose of the Klonopin 0.5 mg and encouraged the patient to verbalize the concerns rather than to act out. The patient is going to be closely monitored with these medications and followed up. JOB# [id number]
[2017-11-17] MEDS: Aspirin 81mg Chewable Tab PO SCH (08:22)
--- NOTE | 2017-11-17 16:46 | Progress Notes ---
DATE: 11/17/2017 SUBJECTIVE: Staff was spoken to. The patient is interviewed. Mood is noted to be less irritable. Affect is appropriate. The patient is isolative and withdrawn. Coping skills at this time are noted to be poor still. The patient tends to scream and yell, but this morning she seems to be quiet. No side effects to the medications are noted at this time. ASSESSMENT: The patient is less irritable. PLAN: To continue the patient with the supportive therapy and followup. JOB# [id number]
[2017-11-18] MEDS: Aspirin 81mg Chewable Tab PO SCH (09:18)
--- NOTE | 2017-11-18 09:42 | General Progress Note ---
Subjective - Review of Systems Service Date: 11/18/17 Subjective: I was asked to see pt as seen been nearly obtunded as of this am. Her O2 sats and vitals are stable, but she's extermely lethargic and not responding to stimulus. No fevers or chills. No falls. No sz. Objective - Physical Exam Vitals and I&O: Vital Signs Temp 97 F 11/18/17 06:47 Pulse 66 11/18/17 08:00 Resp 17 11/18/17 08:00 BP 152/88 11/18/17 08:00 Pulse Ox 99 11/18/17 08:00 Intake & Output 11/17/17 11/18/17 11/18/17 18:59 06:59 18:59 Intake Total 960 120 Balance 960 120 Intake: Oral 960 120 Other: # Voids 3 3 # Bowel Movements 0 Stool Characteristics Soft Formed Brown Active Medications: Current Medications Acetaminophen (Tylenol) 650 mg PO Q4HR PRN PRN Reason: Pain (Mild) Stop: 01/11/18 18:14 Aspirin (Aspirin Chewable) 81 mg PO DAILY [facility] Stop: 01/12/18 08:59 Last Admin: 11/17/17 08:22 Dose: 81 mg Metoprolol Tartrate (Lopressor) 25 mg PO BID [facility] Stop: 01/12/18 08:59 Last Admin: 11/17/17 17:08 Dose: 25 mg Valproate Sodium (Depakene) 125 mg PO BID [facility] PRN Reason: Protocol Stop: 01/12/18 08:59 Last Admin: 11/17/17 17:07 Dose: 125 mg Zolpidem Tartrate (Ambien) 5 mg PO PRN PRN Reason: Insomnia Stop: 01/11/18 18:14 Last Admin: 11/15/17 22:22 Dose: 5 mg General: Other (not awake or alert. Very lethargic) HEENT: Atraumatic, Other (No discharge) Neck: Supple, no JVD Cardiovascular: Regular rate, Normal S1, Normal S2 Lungs: Clear to auscultation - Procedures Procedures: Procedures Procedure Code Date CLOSURE SKIN & SUBCUTANEOUS NEC 86.59 02/11/08 Assessment/Plan - Problem List Patient Problems: All Active Problems EXTREME AGITATION AND VERBAL THREATS (Acute) - Assessment Assessment: ME - Plan Plan: Obtain stat CT head, cbc, and chem 7. Pt's vitals are stable. O2 sats are 99%, but she's not responding to verbal to physical stimulus. Nutritional Asmnt/Malnutr-PDOC - Dietary Evaluation Malnutrition Findings (Please click <Entered> for more info): Nutritional Asmnt/Malnutrition Start: 11/13/17 09: 58 Text: Status: Complete Freq: Document 11/13/17 09:58 LAUREN (Rec: 11/13/17 10:13 KESHAWN [email or web address]) Nutritional Asmnt/Malnutrition Patient General Information Nutritional Screening High Risk Diagnosis psychosis Pertinent Medical Hx/Surgical Hx moode disorder, psychosis, alzheimer's dementia, HTN Subjective Information Pt seen sitting in deann-chair in hallway, confused. Per RN, pt ate few bites for lunch. RN reported pt does not like pureed diet. Pt has teeth noted. RN will update diet to [facility] soft ground. Current Diet Order/ Nutrition Support pureed, DANNIELLE Pertinent Medications reviewed Pertinent Labs no labs Nutritional Hx/Data Height 1.55 m Height (Calculated Centimeters) 154.9 Current Weight (lbs) 40.823 kg Weight (Calculated Kilograms) 40.8 Weight (Calculated Grams) 82768.3 [place] Body Weight 105 Body Mass Index (BMI) 16.9 Weight Status Underweight GI Symptoms GI Symptoms None Last BM no record Difficult in: None Skin Integrity/Comment: bruises marimar score 12 Estimated Nutritional Goals BEE in Kcals: Using Current wt Calories/Kcals/Kg 30-35 Kcals Calculated 6593-6781 Protein: Using Current wt Protein g/k.2-1.4 Protein Calculated 49-57 Fluid: ml 1230-1435ml (1ml/kcal) Nutritional Problem No current Nutrition Prob Problem N/A Malnutrition Alert Body Fat Depletion (Non-Severe) Mild Depletion Protein-Calorie Malnutrition N/A Is there a minimum of two criteria No selected? Query Text:Check all the applicable criteria. A minimum of two criteria are recommended for diagnosis of either severe or non-severe malnutrition. Intervention/Recommendation Comments 1. Assist pt with meals. Encourage oral intake at meal time and snacks between meals. 2. Monitor PO intake, wt, labs and skin integrity 3. F/U as moderate risk in 3-5 days, 11/16-11/18, PO check Expected Outcomes/Goals Expected Outcomes/Goals 1. PO intake to meet at least 75% of nutritional needs. 2. Wt stability, skin to remain intact, labs to approach WNL.
[2017-11-18 10:08] LABS: HEMATOCRIT 31.8 % (41.0-60); HEMOGLOBIN 10.2 gm/dL (12-16); MEAN CORPUSCULAR HEMOGLOBIN 19.7 pg (27.0-31.0); MEAN PLATELET VOLUME 9.8 fl; PLATELET COUNT 192 Th/cmm (150-400); RED BLOOD COUNT 5.16 Mil/cmm (3.80-5.20); RED CELL DISTRIBUTION WIDTH 15.5 % (11.5-20.0)
[2017-11-18 10:18] LABS: WHITE BLOOD COUNT 13.4 Th/cmm (4.8-10.8)
[2017-11-18 10:19] LABS: MANUAL DIFF REQUIRED? YES
[2017-11-18 10:22] LABS: ACETAMINOPHEN < 10.0 ug/mL (10.0-30.0); ALB/GLOB RATIO 1.1 (1.0-1.8); ALBUMIN 3.7 gm/dL (3.7-5.3); ALKALINE PHOSPHATASE 92 U/L (34-104); BILIRUBIN,TOTAL 0.7 mg/dL (0.3-1.0); BUN - UREA NITROGEN 60 mg/dL (7-25); CALCIUM SERUM 9.1 mg/dL (8.6-10.3); CARBON DIOXIDE 23.3 mEq/L (21.0-31.0); CHLORIDE 107 mEq/L (98-107); CHOLESTEROL 174 mg/dL (<200); CREATININE - SERUM 1.7 mg/dL (0.6-1.2); GLUCOSE 122 mg/dL (70-105); HDL -HIGH DENSITY LIPOPROTEIN 52 mg/dL (23-92); POTASSIUM SERUM 4.3 mEq/L (3.5-5.1); SALICYLATES (ASPIRIN) < 25.0 mg/L (30.0-100.0); SGOT 17 U/L (13-39); SGPT/ALT 14 U/L (7-52); SODIUM SERUM 140 mEq/L (136-145); TOTAL PROTEIN,SERUM 7.2 gm/dL (6.0-8.3); TRIGLYCERIDES 71 mg/dL (<150)
[2017-11-18 10:24] LABS: TOTAL CELLS COUNTED 100
[2017-11-18 10:31] LABS: BAND NEUTROPHILE 2 % (0-10); LYMPHOCYTE 10 % (20-50); MONOCYTE 2 % (2-10); NEUTROPHILS 86 % (40-80)
[2017-11-18 10:33] LABS: MEAN CELL VOLUME 61.7 fl (81-100)
[2017-11-18 15:54] LABS: A1C % 5.9 % (4.0-6.0)
== END 2017-11-18 10:14 | DRG 56 ==
LOC: ER 15:18 → GERO2 16:00 → GERO 11-13 09:04
PROVIDERS: ADMIT Psychiatry & Neurology Psychiatry; ATTEND Psychiatry & Neurology Psychiatry
DX: G30.9 Alzheimer's disease, unspecified (principal); F02.81 Dementia in other diseases classified elsewhere, unspecified severity, with behavioral disturbance; G93.41 Metabolic encephalopathy; F29 Unspecified psychosis not due to a substance or known physiological condition; F31.9 Bipolar disorder, unspecified; I10 Essential (primary) hypertension; R26.81 Unsteadiness on feet; M19.90 Unspecified osteoarthritis, unspecified site; Z82.49 Family history of ischemic heart disease and other diseases of the circulatory system
CPT/HCPCS: 36415-UA; 70460-TC; 80053-TC; 80061-TC; 80320-TC; 80329-TC; 83036-90; 84443-TC; 85007-TC; 85025-TC; 85027-TC; 86592-TC; Z7610

== ENCOUNTER 2017-11-18 10:39 | Inpatient (IN) | payer MEDICARE ==
[2017-11-18] MEDS ORDERED: D5-0.9%NS 1,000 ML IV SCH (10:50)
[2017-11-18 12:26] LABS: URINE MICROSCOPIC INDICATED? YES; URINE SOURCE CATH
[2017-11-18 12:30] LABS: URINE BILIRUBIN NEGATIVE (NEGATIVE); URINE BLOOD MODERATE (NEGATIVE); URINE CLARITY CLEAR (CLEAR); URINE COLOR YELLOW; URINE GLUCOSE (UA) NEGATIVE (NEGATIVE); URINE KETONE NEGATIVE (NEGATIVE); URINE LEUKOCYTE ESTERASE NEGATIVE (NEGATIVE); URINE NITRATE NEGATIVE (NEGATIVE); URINE PROTEIN 30 mg/dL (NEGATIVE); URINE UROBILINOGEN 0.2 E.U./dL (0.2 - 1.0)
[2017-11-18 12:35] LABS: URINE BACTERIA 1+ /hpf (NONE SEEN); URINE COARSE GRANULAR CAST 0-2 /lpf (NONE SEEN); URINE EPITHELIAL CELLS FEW /lpf (FEW)
[2017-11-18] MEDS: D5-0.9%NS 1,000 ML IV SCH ×2 (13:36→23:20)
[2017-11-18] MEDS ORDERED: Potassium Chloride 40 MEQ, Lidocaine 1% 20mL Vial 25 MG in Sodium Chloride 0.9% 250 ML IV PRN (22:49)
[2017-11-18] MEDS ORDERED: Mag Sulfate 2gm/50mL Premix 2 GM/50 ML BAG IV PRN (22:49)
[2017-11-18] MEDS: cefTRIAXone 1 GM in Sodium Chloride 0.9% 50 ML IV SCH (23:09)
--- NOTE | 2017-11-19 01:19 | Progress Notes ---
DATE: 11/18/2017 PSYCHIATRIC PROGRESS NOTE SUBJECTIVE: Staff was spoken to. The patient is interviewed. Mood is noted to be depressed. The patient is very lethargic this morning. The patient, however, has been responding to internal stimuli. Staff are reporting that the vital signs are stable. Dr. Tilley has been contacted and has evaluated the patient, and asked for oxygen O2 sats. O2 sats are also reported to be fine, but since the patient is very lethargic, it is decided to hold off the psychotropic medications and closely monitor the patient's vital signs and follow the patient up and the patient is only on 125 mg of the valproic acid and 5 mg of the zolpidem. The patient is going to be closely monitored and if the vital signs are getting unstable, the patient is going to be transferred to the medical unit for further care. JOB# [id number]
[2017-11-19 06:17] LABS: HEMOGLOBIN 8.6 gm/dL (12-16); MEAN CORPUSCULAR HEMOGLOBIN 19.9 pg (27.0-31.0); MEAN CORPUSCULAR HGB CONC 32.8 pg (28.0-36.0); MEAN PLATELET VOLUME 8.6 fl; RED BLOOD COUNT 4.29 Mil/cmm (3.80-5.20); RED CELL DISTRIBUTION WIDTH 15.7 % (11.5-20.0)
[2017-11-19 06:20] LABS: MANUAL DIFF REQUIRED? YES; PLATELET COUNT 128 Th/cmm (150-400); WHITE BLOOD COUNT 9.9 Th/cmm (4.8-10.8)
[2017-11-19 06:52] LABS: ANION GAP 11.3 (7.0-16.0); BUN - UREA NITROGEN 52 mg/dL (7-25); CALCIUM SERUM 8.3 mg/dL (8.6-10.3); CARBON DIOXIDE 23.3 mEq/L (21.0-31.0); CHLORIDE 115 mEq/L (98-107); GLUCOSE 125 mg/dL (70-105); POTASSIUM SERUM 3.6 mEq/L (3.5-5.1); SODIUM SERUM 146 mEq/L (136-145)
[2017-11-19 07:09] LABS: BAND NEUTROPHILE 1 % (0-10); LYMPHOCYTE 12 % (20-50); MONOCYTE 2 % (2-10); NEUTROPHILS 85 % (40-80); TOTAL CELLS COUNTED 100
[2017-11-19 07:11] LABS: MEAN CELL VOLUME 60.8 fl (81-100)
--- NOTE | 2017-11-19 07:47 | Diagnostic Imaging Report ---
Portable chest x-ray Time: 1229 hours Compared to prior exam of 11/08/2017 History: Elevated WBC Allowing for portable technique the heart size is normal. No focal pulmonary parenchymal processes. No hilar or mediastinal abnormalities. Extensive COPD changes are noted. The aortic arch calcified. Impression: No acute abnormalities. COPD changes are noted, unchanged compared to prior exam.
--- NOTE | 2017-11-19 08:35 | Diagnostic Imaging Report ---
CT scan of the brain without intravenous contrast HISTORY: Lethargic Total DLP equals 539 CTDI equals 29.8 Axial sections were obtained from the base of the skull to the vertex. There is prominence/enlargement of the ventricular system size. Associated enlargement of cerebral sulci and subarachnoid cisterns. Findings are consistent with changes of generalized cerebral atrophy. No acute parenchymal abnormalities. No acute cerebral hemorrhage. Hypodensity is seen within the supratentorial white matter regions without mass effect. The findings may be associated with chronic small vessel ischemic disease. No extra-axial masses or abnormal fluid collections. There is evidence of sinusitis. IMPRESSION: 1. No acute abnormalities 2. Cerebral atrophy 3. Supratentorial white matter changes that may reflect chronic small vessel ischemic disease 4. Sinusitis
--- NOTE | 2017-11-19 09:49 | History & Physical ---
ADMIT DATE: CHIEF COMPLAINT: Encephalopathic. HISTORY OF PRESENT ILLNESS: The patient is a confused 87-year-old female. She was recently sent to the Geropsych Unit. She was receiving inpatient psychiatric care for psychosis. She also has a history of Alzheimer's dementia and hypertension as well. On the Geropsych Unit, she became unresponsive yesterday. Stat labs were done and she was not waking up; however, the vitals were stable, she was transferred to Med/Surg/telemetry unit for further workup and treatment along with IV fluids as well. She was found to have UTI and vasomotor nephropathy and hypernatremia. PAST MEDICAL HISTORY: Significant for mood disorder, psychosis, Alzheimer dementia, hypertension. SOCIAL HISTORY: No documented history of alcohol, tobacco, or drug abuse. FAMILY HISTORY: Noncontributory. ALLERGIES: No known drug allergies. SURGICAL HISTORY: No recent major surgeries. REVIEW OF SYSTEMS: GENERAL: Positive recent fatigue, weakness and unresponsiveness yesterday as of 11/18/2017. HEENT: No recent head trauma or change in vision, taste, hearing, or smell. Oral: No recent pain or discharge. NECK: No recent tracheal deviation. ABDOMEN: No recent pain or distention. SKIN: No recent rashes. PSYCHIATRIC: Positive for psychosis and mood disorder. NEUROLOGIC: She has history of Alzheimer's dementia. MUSCULOSKELETAL: Positive for unsteady gait and muscle weakness. EXTREMITIES: No recent edema. ABDOMEN: No recent pain or distension. RESPIRATORY: She has history of COPD. GENITOURINARY: No recent increased urinary frequency, but positive for urgency and possibly even dysuria as well. PHYSICAL EXAMINATION: VITAL SIGNS: Temperature is 97.7 degrees, heart rate is 102, respirations is 16, blood pressure 135/83. Currently, no pain. GENERAL: No acute distress. She is awake. She is alert to name, now she is agitated, but no acute distress. HEENT: No acute issues. NECK: Trachea is midline. CARDIOVASCULAR: Currently, regular rate and rhythm. She does have episodes of sinus tachycardia. ABDOMEN: Nontender, nondistended. SKIN: No rashes. PSYCHIATRIC: She has labile mood. EXTREMITIES: No edema. SKIN: Poor turgor. MUSCULOSKELETAL: Decreased muscle strength upper and lower extremities. RESPIRATORY: Decreased breath sounds bilaterally. GENITOURINARY: No hematuria is noted. LABORATORY DATA: UA is positive for UTI. Sodium 146, potassium 3.6, chloride 113, bicarbonate 23.3, BUN 52, creatinine is 1, calcium is 8.3, glucose is 122. The patient's chemistry panel from yesterday is the following: Sodium 140, potassium 4.3, chloride 107, bicarbonate 23.3, BUN 60, creatinine 1.7, glucose 122, calcium is 8.3. Chest x-ray is negative. CT of the head is negative. ASSESSMENT: 1. Metabolic encephalopathy. 2. Urinary tract infection. 3. Vasomotor nephropathy. 4. Hypernatremia. 5. Psychosis. 6. Chronic obstructive pulmonary disease. 7. Dementia, Alzheimer's type with exacerbation. 8. Unsteady gait. PLAN: The patient is on IV D5 NS at 90 mL per hour. Renal function is improved. Follow up on chemistry panel tomorrow. She is on Rocephin 1 g IV daily for UTI. She is more awake and alert now. We will advance diet as tolerated. Dr. Keene will be seeing the patient for psychiatric services. JOB# [id number]
[2017-11-19] MEDS: D5-0.9%NS 1,000 ML IV SCH ×2 (10:46→22:04)
[2017-11-19] MEDS: cefTRIAXone 1 GM in Sodium Chloride 0.9% 50 ML IV SCH (22:04)
[2017-11-20 05:18] LABS: % EOSINOPHILS 3.2 % (0.0-5.0); % NEUTROPHILS 73.8 % (40.0-80.0); EOSINOPHILE ABSOLUTE 0.2 Th/cmm (0.1-0.4); HEMATOCRIT 24.6 % (41.0-60); MEAN PLATELET VOLUME 9.8 fl; MONOCYTE ABSOLUTE 0.4 Th/cmm (0.3-1.0); NEUTROPHILE ABSOLUTE 4.4 Th/cmm (1.8-8.0); PLATELET COUNT 136 Th/cmm (150-400); RED BLOOD COUNT 4.02 Mil/cmm (3.80-5.20)
[2017-11-20 05:30] LABS: ANION GAP 7.2 (7.0-16.0); BUN - UREA NITROGEN 27 mg/dL (7-25); CALCIUM SERUM 8.4 mg/dL (8.6-10.3); CARBON DIOXIDE 25.1 mEq/L (21.0-31.0); CHLORIDE 115 mEq/L (98-107); CREATININE - SERUM 0.7 mg/dL (0.6-1.2); GLUCOSE 105 mg/dL (70-105); POTASSIUM SERUM 3.3 mEq/L (3.5-5.1); SODIUM SERUM 144 mEq/L (136-145)
[2017-11-20 05:42] LABS: HEMOGLOBIN 7.6 gm/dL (12-16)
[2017-11-20 05:43] LABS: MEAN CELL VOLUME 61.2 fl (81-100)
[2017-11-20] MEDS: Potassium Chloride 20 mEq ER Tab PO PRN (09:46)
--- NOTE | 2017-11-20 10:28 | General Progress Note ---
Subjective - Review of Systems Service Date: 11/20/17 Subjective: Pt seen and eval. She was very agitated this am. She's now status post Ativan 1 mg. Hgb continues to drop. No n,v,d or cp. On Iv Rocephin for UTI. No falls or sz. Objective - Results Result Diagrams: 11/20/17 05:00 11/20/17 05:00 Recent Labs: Laboratory Last Values WBC 6.0 Th/cmm (4.8-10.8) D 11/20/17 05:00 RBC 4.02 Mil/cmm (3.80-5.20) 11/20/17 05:00 Hgb 7.6 gm/dL (12-16) L* 11/20/17 05:00 Hct 24.6 % (41.0-60) L 11/20/17 05:00 MCV 61.2 fl (81-100) L 11/20/17 05:00 MCH 19.0 pg (27.0-31.0) L 11/20/17 05:00 MCHC Differential 31.0 pg (28.0-36.0) 11/20/17 05:00 RDW 16.0 % (11.5-20.0) 11/20/17 05:00 Plt Count 136 Th/cmm (150-400) L 11/20/17 05:00 MPV 9.8 fl 11/20/17 05:00 Neutrophils % 73.8 % (40.0-80.0) 11/20/17 05:00 Band Neutrophils % 1 % (0-10) 11/19/17 05:30 Lymphocytes % 17.0 % (20.0-50.0) L 11/20/17 05:00 Monocytes % 6.0 % (2.0-10.0) 11/20/17 05:00 Eosinophils % 3.2 % (0.0-5.0) 11/20/17 05:00 Basophils % 0.0 % (0.0-2.0) 11/20/17 05:00 Neutrophils (Manual) 85 % (40-80) H 11/19/17 05:30 Lymphocytes 12 % (20-50) L 11/19/17 05:30 Monocytes 2 % (2-10) 11/19/17 05:30 Microcytosis 2+ 11/19/17 05:30 RBC Morph Micro Appear ABNORMAL (NORMAL) 11/19/17 05:30 Sodium 144 mEq/L (136-145) 11/20/17 05:00 Potassium 3.3 mEq/L (3.5-5.1) L 11/20/17 05:00 Chloride 115 mEq/L (98-107) H 11/20/17 05:00 Carbon Dioxide 25.1 mEq/L (21.0-31.0) 11/20/17 05:00 Anion Gap 7.2 (7.0-16.0) 11/20/17 05:00 BUN 27 mg/dL (7-25) H 11/20/17 05:00 Creatinine 0.7 mg/dL (0.6-1.2) 11/20/17 05:00 Est GFR ( Amer) TNP 11/20/17 05:00 Est GFR (Non-Af Amer) TNP 11/20/17 05:00 BUN/Creatinine Ratio 38.6 11/20/17 05:00 Glucose 105 mg/dL (70-105) 11/20/17 05:00 POC Glucose 122 MG/DL (70 - 105) H 11/18/17 12:32 Calcium 8.4 mg/dL (8.6-10.3) L 11/20/17 05:00 Urine Source CATH 11/18/17 12:00 Urine Color YELLOW 11/18/17 12:00 Urine Clarity CLEAR (CLEAR) 11/18/17 12:00 Urine pH 6.0 (4.6 - 8.0) 11/18/17 12:00 Ur Specific [place] >= 1.030 (1.005-1.030) 11/18/17 12:00 Urine Protein 30 mg/dL (NEGATIVE) H 11/18/17 12:00 Urine Glucose (UA) NEGATIVE mg/dL (NEGATIVE) 11/18/17 12:00 Urine Ketones NEGATIVE mg/dL (NEGATIVE) 11/18/17 12:00 Urine Blood MODERATE (NEGATIVE) H 11/18/17 12:00 Urine Nitrate NEGATIVE (NEGATIVE) 11/18/17 12:00 Urine Bilirubin NEGATIVE (NEGATIVE) 11/18/17 12:00 Urine Urobilinogen 0.2 E.U./dL (0.2 - 1.0) 11/18/17 12:00 Ur Leukocyte Esterase NEGATIVE (NEGATIVE) 11/18/17 12:00 Urine RBC 5-10 /hpf (0-5) H 11/18/17 12:00 Urine WBC 2-5 /hpf (0-5) 11/18/17 12:00 Ur Epithelial Cells FEW /lpf (FEW) 11/18/17 12:00 Urine Bacteria 1+ /hpf (NONE SEEN) H 11/18/17 12:00 Coarse Granular Casts 0-2 /lpf (NONE SEEN) H 11/18/17 12:00 Urine Mucus FEW /lpf (FEW) 11/18/17 12:00 - Physical Exam Vitals and I&O: Vital Signs Temp 96.9 F 11/20/17 04:00 Pulse 62 11/20/17 08:58 Resp 18 11/20/17 04:00 BP 139/105 11/20/17 08:58 Pulse Ox 96 11/20/17 04:00 Intake & Output 11/19/17 11/20/17 11/20/17 18:59 06:59 18:59 Intake Total 1000 1050 Balance 1000 1050 Intake: Intake, IV Amount 1000 1050 D5-0.9%Ns 1,000 ml @ 90 1000 1000 mls/hr IV .Q11H7M [facility] Rx# :[id number] cefTRIAXone 1 gm In 50 Sodium Chloride 0.9% 50 ml @ 100 mls/hr IV Q24HR [facility] Rx#:[id number] Other: Stool Characteristics Soft Active Medications: Current Medications Acetaminophen (Tylenol) 650 mg PO Q6H PRN PRN Reason: HEADACHE/TEMP ABOVE 100F Stop: 01/17/18 22:48 Dextrose/Sodium Chloride (D5-0.9%Ns) 1,000 mls @ 90 mls/hr IV .Q11H7M [facility] Stop: 01/17/18 12:49 Last Admin: 11/19/17 22:04 Dose: 90 mls/hr Ceftriaxone Sodium 1 gm/ (Sodium Chloride) 50 mls @ 100 mls/hr IV Q24HR [facility] Stop: 01/17/18 22:59 Last Infusion: 11/20/17 03:56 Dose: Infused Potassium Chloride 40 meq/Lidocaine HCl 25 mg/ Sodium Chloride 272.5 mls @ 68 mls/hr IV DAILY PRN PRN Reason: k level less than 3.2 Stop: 01/17/18 22:48 Magnesium Sulfate (Magnesium Sulfate Premix) 2 gm in 50 mls @ 25 mls/hr IV DAILY PRN PRN Reason: Magnesium level less than 1.6 Stop: 01/17/18 22:48 Lorazepam (Ativan) 0.5 mg IVP Q6HR PRN; Protocol PRN Reason: Anxiety Stop: 01/17/18 22:48 Magnesium Oxide (Mag-Oxide) 400 mg PO BID PRN PRN Reason: Mg less than 1.9 Stop: 01/17/18 22:48 Metoprolol Tartrate (Lopressor) 25 mg PO BID [facility] Stop: 01/18/18 17:59 Last Admin: 11/20/17 08:58 Dose: 25 mg Ondansetron HCl (Zofran) 4 mg IVP Q6H PRN PRN Reason: Nausea / Vomiting Stop: 01/17/18 22:48 Potassium Chloride (Klor-Con) 40 meq PO DAILY PRN PRN Reason: k level less than 3.5 Stop: 01/17/18 22:48 Last Admin: 11/20/17 09:46 Dose: 40 meq General: No acute distress HEENT: Atraumatic, PERRLA Neck: Supple, JVD Cardiovascular: Regular rate, Normal S1, Normal S2 Lungs: Clear to auscultation - Procedures Procedures: Procedures Procedure Code Date CLOSURE SKIN & SUBCUTANEOUS NEC 86.59 02/11/08 Assessment/Plan - Assessment Assessment: ME UTI Anemia of ch ill VMN Hypernatremia Psychosis ADAM with exac COPD Unsteady gait - Plan Plan: GI consult and FU on stool OB. Heparin DC'd. On Rocephin 1 gm IV daily for UTI. Will decrease ativan to 0.5 mg prn due to lethargy. FU on cbc and chem 7. On IV fluids. Renal fx improving.
[2017-11-20] MEDS: D5-0.9%NS 1,000 ML IV SCH (15:57)
[2017-11-20] MEDS: Ferrous Sulfate 300 MG/5 ML UDC PO SCH (17:45)
[2017-11-20] MEDS: cefTRIAXone 1 GM in Sodium Chloride 0.9% 50 ML IV SCH (23:52)
--- NOTE | 2017-11-21 00:54 | Consultation ---
DATE OF CONSULTATION: 11/20/2017 TYPE OF CONSULTATION: GASTROENTEROLOGY. REQUESTING PHYSICIAN: Dr. Chano Tilley. REASON FOR CONSULTATION: Anemia. HISTORY OF PRESENT ILLNESS: An 87-year-old female with history of dementia and sent from a geropsych unit. She was undergoing evaluation for psychosis. She has hypertension. She was noted to be weak and dizzy and lethargic. She was noted to have a low hemoglobin. We were asked to evaluate the patient for a declining hemoglobin. There has been no witnessed GI bleeding. Her last bowel movement was 2 days ago and appeared normal. Per her son who I talked to over the phone, the patient has not had a previous endoscopy or colonoscopy. There is no family history of GI malignancy. There have been no complaints of any GI specific symptoms. PAST MEDICAL HISTORY: As above. The patient's son does report the patient has history of chronic anemia. Never had a blood transfusion prior. MEDICATIONS: Tylenol, Rocephin, Ativan, magnesium sulfate p.r.n., Lopressor, Zofran p.r.n. ALLERGIES: No known drug allergies. SOCIAL HISTORY: No recent tobacco, alcohol or drugs. FAMILY HISTORY: Noncontributory. REVIEW OF SYSTEMS: A comprehensive 12-point review of system was conducted via the patient's son and is only positive for those signs and symptoms present in history of present illness. PHYSICAL EXAMINATION: VITAL SIGNS: Temperature 97.5, blood pressure 151/70, pulse of 68, respirations are 19, O2 sat 97%. GENERAL: The patient is well-developed elderly female who is in no acute distress. HEENT: Sclerae nonicteric. Oropharynx is clear. CARDIOVASCULAR: Regular rate and rhythm. LUNGS: With occasional rhonchi at the bases. ABDOMEN: Soft, nontender, nondistended. EXTREMITIES: No clubbing, cyanosis or edema. RECTAL: Deferred. LABORATORY/IMAGING DATA: WBC 6, hemoglobin 7.6, platelet count is 136, MCV of 61. Sodium 144, creatinine 0.7. Urinalysis shows protein, blood, and 5-10 RBCs. IMPRESSION: 1. Anemia, microcytic, likely iron deficient. Rule out slow gastrointestinal blood loss from upper gastrointestinal versus lower gastrointestinal source. No prior endoscopic workups. No overt gastrointestinal bleeding at this point. 2. Dementia. 3. Hypertension. RECOMMENDATIONS: 1. I have discussed overall plan with the patient's son who requests conservative nonendoscopic management if possible in response to the patient's age. He wants his mom to not suffer at this point. He also is contemplating refusing blood transfusions as well. 2. Add iron supplementation orally and consider IV if not tolerated. 3. Oral diet with dysphagia precautions as tolerated. 4. Check stool OB, but this may not make a difference if the patient's son does not agree to endoscopic workup. Thank you, Dr. Chano Tilley for involving us in the care of your patient. If you have any further questions, please call us. JOB# [id number] DAVID
[2017-11-21] MEDS: D5-0.9%NS 1,000 ML IV SCH ×2 (02:09→23:15)
--- NOTE | 2017-11-21 05:03 | Progress Notes ---
DATE: 11/20/2017 SUBJECTIVE: Staff was spoken to. The patient is interviewed. Mood is noted to be as less irritable. Affect is constricted. Insight and judgment are noted to be still impaired. The patient is still confused and demented. No major behavioral problems are noted. The patient is maintained on a very low dose of the Risperdal and Depakote and the patient is seems to be drowsy and hence we are trying to manage with the Ativan on a p.r.n. basis and follow the patient up. JOB# [id number]
[2017-11-21 06:17] LABS: % BASOPHILS 0.8 % (0.0-2.0); % EOSINOPHILS 2.4 % (0.0-5.0); % LYMPHOCYTES 14.9 % (20.0-50.0); % MONOCYTES 6.6 % (2.0-10.0); % NEUTROPHILS 75.3 % (40.0-80.0); BASOPHILE ABSOLUTE 0.1 Th/cumm (0-0.2); EOSINOPHILE ABSOLUTE 0.2 Th/cmm (0.1-0.4); HEMATOCRIT 27.1 % (41.0-60); HEMOGLOBIN 8.5 gm/dL (12-16); MEAN CORPUSCULAR HEMOGLOBIN 19.3 pg (27.0-31.0); MEAN CORPUSCULAR HGB CONC 31.3 pg (28.0-36.0); MEAN PLATELET VOLUME 9.6 fl; MONOCYTE ABSOLUTE 0.5 Th/cmm (0.3-1.0); NEUTROPHILE ABSOLUTE 5.2 Th/cmm (1.8-8.0); PLATELET COUNT 108 Th/cmm (150-400); RED BLOOD COUNT 4.37 Mil/cmm (3.80-5.20); RED CELL DISTRIBUTION WIDTH 16.1 % (11.5-20.0)
[2017-11-21 06:26] LABS: ANION GAP 6.9 (7.0-16.0); BUN - UREA NITROGEN 22 mg/dL (7-25); CALCIUM SERUM 8.4 mg/dL (8.6-10.3); CARBON DIOXIDE 24.5 mEq/L (21.0-31.0); CHLORIDE 111 mEq/L (98-107); CREATININE - SERUM 0.7 mg/dL (0.6-1.2); GLUCOSE 99 mg/dL (70-105); POTASSIUM SERUM 3.4 mEq/L (3.5-5.1); SODIUM SERUM 139 mEq/L (136-145)
[2017-11-21 07:19] LABS: MEAN CELL VOLUME 61.9 fl (81-100)
--- NOTE | 2017-11-21 07:54 | General Progress Note ---
Subjective - Review of Systems Service Date: 11/21/17 Subjective: Pt seen and eval. No longer agitated. She's awake and pleasant. Asking for breakfast. Hgb improved. No n,v,d or cp. On Iv Rocephin for UTI. No falls or sz. Objective - Results Result Diagrams: 11/21/17 05:45 11/21/17 05:45 Recent Labs: Laboratory Last Values WBC 7.0 Th/cmm (4.8-10.8) 11/21/17 05:45 RBC 4.37 Mil/cmm (3.80-5.20) 11/21/17 05:45 Hgb 8.5 gm/dL (12-16) L 11/21/17 05:45 Hct 27.1 % (41.0-60) L 11/21/17 05:45 MCV 61.9 fl (81-100) L 11/21/17 05:45 MCH 19.3 pg (27.0-31.0) L 11/21/17 05:45 MCHC Differential 31.3 pg (28.0-36.0) 11/21/17 05:45 RDW 16.1 % (11.5-20.0) 11/21/17 05:45 Plt Count 108 Th/cmm (150-400) L 11/21/17 05:45 MPV 9.6 fl 11/21/17 05:45 Neutrophils % 75.3 % (40.0-80.0) 11/21/17 05:45 Band Neutrophils % 1 % (0-10) 11/19/17 05:30 Lymphocytes % 14.9 % (20.0-50.0) L 11/21/17 05:45 Monocytes % 6.6 % (2.0-10.0) 11/21/17 05:45 Eosinophils % 2.4 % (0.0-5.0) 11/21/17 05:45 Basophils % 0.8 % (0.0-2.0) 11/21/17 05:45 Neutrophils (Manual) 85 % (40-80) H 11/19/17 05:30 Lymphocytes 12 % (20-50) L 11/19/17 05:30 Monocytes 2 % (2-10) 11/19/17 05:30 Microcytosis 2+ 11/19/17 05:30 RBC Morph Micro Appear ABNORMAL (NORMAL) 11/19/17 05:30 Sodium 139 mEq/L (136-145) 11/21/17 05:45 Potassium 3.4 mEq/L (3.5-5.1) L 11/21/17 05:45 Chloride 111 mEq/L (98-107) H 11/21/17 05:45 Carbon Dioxide 24.5 mEq/L (21.0-31.0) 11/21/17 05:45 Anion Gap 6.9 (7.0-16.0) L 11/21/17 05:45 BUN 22 mg/dL (7-25) 11/21/17 05:45 Creatinine 0.7 mg/dL (0.6-1.2) 11/21/17 05:45 Est GFR ( Amer) TNP 11/21/17 05:45 Est GFR (Non-Af Amer) TNP 11/21/17 05:45 BUN/Creatinine Ratio 31.4 11/21/17 05:45 Glucose 99 mg/dL (70-105) 11/21/17 05:45 POC Glucose 122 MG/DL (70 - 105) H 11/18/17 12:32 Calcium 8.4 mg/dL (8.6-10.3) L 11/21/17 05:45 Urine Source CATH 11/18/17 12:00 Urine Color YELLOW 11/18/17 12:00 Urine Clarity CLEAR (CLEAR) 11/18/17 12:00 Urine pH 6.0 (4.6 - 8.0) 11/18/17 12:00 Ur Specific [place] >= 1.030 (1.005-1.030) 11/18/17 12:00 Urine Protein 30 mg/dL (NEGATIVE) H 11/18/17 12:00 Urine Glucose (UA) NEGATIVE mg/dL (NEGATIVE) 11/18/17 12:00 Urine Ketones NEGATIVE mg/dL (NEGATIVE) 11/18/17 12:00 Urine Blood MODERATE (NEGATIVE) H 11/18/17 12:00 Urine Nitrate NEGATIVE (NEGATIVE) 11/18/17 12:00 Urine Bilirubin NEGATIVE (NEGATIVE) 11/18/17 12:00 Urine Urobilinogen 0.2 E.U./dL (0.2 - 1.0) 11/18/17 12:00 Ur Leukocyte Esterase NEGATIVE (NEGATIVE) 11/18/17 12:00 Urine RBC 5-10 /hpf (0-5) H 11/18/17 12:00 Urine WBC 2-5 /hpf (0-5) 11/18/17 12:00 Ur Epithelial Cells FEW /lpf (FEW) 11/18/17 12:00 Urine Bacteria 1+ /hpf (NONE SEEN) H 11/18/17 12:00 Coarse Granular Casts 0-2 /lpf (NONE SEEN) H 11/18/17 12:00 Urine Mucus FEW /lpf (FEW) 11/18/17 12:00 - Physical Exam Vitals and I&O: Vital Signs Temp 97.1 F 11/21/17 04:13 Pulse 60 11/21/17 04:13 Resp 18 11/21/17 04:13 BP 126/67 11/21/17 04:13 Pulse Ox 98 11/21/17 04:13 Intake & Output 11/20/17 11/21/17 11/21/17 18:59 06:59 18:59 Intake Total 1000 1068 Balance 1000 1068 Weight (lbs) 44.951 kg Intake: Intake, IV Amount 1000 968 D5-0.9%Ns 1,000 ml @ 90 1000 918 mls/hr IV .Q11H7M [facility] Rx# :[id number] cefTRIAXone 1 gm In 50 Sodium Chloride 0.9% 50 ml @ 100 mls/hr IV Q24HR [facility] Rx#:[id number] Oral 100 Other: # Voids 2 # Bowel Movements 0 Weight Source Bedscale Active Medications: Current Medications Acetaminophen (Tylenol) 650 mg PO Q6H PRN PRN Reason: HEADACHE/TEMP ABOVE 100F Stop: 01/17/18 22:48 Ferrous Sulfate (Iron) 300 mg PO BID [facility] Stop: 01/19/18 17:14 Last Admin: 11/20/17 17:45 Dose: 300 mg Dextrose/Sodium Chloride (D5-0.9%Ns) 1,000 mls @ 90 mls/hr IV .Q11H7M [facility] Stop: 01/17/18 12:49 Last Admin: 11/21/17 02:09 Dose: 90 mls/hr Ceftriaxone Sodium 1 gm/ (Sodium Chloride) 50 mls @ 100 mls/hr IV Q24HR [facility] Stop: 01/17/18 22:59 Last Infusion: 11/21/17 00:50 Dose: Infused Potassium Chloride 40 meq/Lidocaine HCl 25 mg/ Sodium Chloride 272.5 mls @ 68 mls/hr IV DAILY PRN PRN Reason: k level less than 3.2 Stop: 01/17/18 22:48 Magnesium Sulfate (Magnesium Sulfate Premix) 2 gm in 50 mls @ 25 mls/hr IV DAILY PRN PRN Reason: Magnesium level less than 1.6 Stop: 01/17/18 22:48 Lorazepam (Ativan) 0.5 mg IVP Q6HR PRN; Protocol PRN Reason: Anxiety Stop: 01/17/18 22:48 Last Admin: 11/21/17 06:55 Dose: 0.5 mg Magnesium Oxide (Mag-Oxide) 400 mg PO BID PRN PRN Reason: Mg less than 1.9 Stop: 01/17/18 22:48 Metoprolol Tartrate (Lopressor) 25 mg PO BID [facility] Stop: 01/18/18 17:59 Last Admin: 11/20/17 16:06 Dose: 25 mg Ondansetron HCl (Zofran) 4 mg IVP Q6H PRN PRN Reason: Nausea / Vomiting Stop: 01/17/18 22:48 Potassium Chloride (Klor-Con) 40 meq PO DAILY PRN PRN Reason: k level less than 3.5 Stop: 01/17/18 22:48 Last Admin: 11/20/17 09:46 Dose: 40 meq General: Cooperative, No acute distress HEENT: Atraumatic, PERRLA Neck: Supple, JVD Cardiovascular: Regular rate, Normal S1, Normal S2 Lungs: Clear to auscultation - Procedures Procedures: Procedures Procedure Code Date CLOSURE SKIN & SUBCUTANEOUS NEC 86.59 02/11/08 Assessment/Plan - Assessment Assessment: ME UTI Anemia of ch ill VMN Hypernatremia Psychosis ADAM with exac COPD Unsteady gait - Plan Plan: GI consult and FU on stool OB. Heparin DC'd. Has SCD's. FU on stool OB-however pt's son doesn't want any workup or scopes, etc. On Rocephin 1 gm IV daily for UTI. I've decreased ativan to 0.5 mg prn due to lethargy-and pt is doing well. FU on cbc and chem 7. On IV fluids. Renal fx improving.
[2017-11-21] MEDS: Ferrous Sulfate 300 MG/5 ML UDC PO SCH ×2 (09:31→16:11)
[2017-11-21] MEDS: Potassium Chloride 20 mEq ER Tab PO PRN (09:31)
--- NOTE | 2017-11-21 11:41 | GI Progress Note ---
Subjective - Review of Systems Service Date: 11/21/17 Subjective: EVENTS NOTED. NOT EATING MUCH. Objective - Results Result Diagrams: 11/21/17 05:45 11/21/17 05:45 Recent Labs: Laboratory Last Values WBC 7.0 Th/cmm (4.8-10.8) 11/21/17 05:45 RBC 4.37 Mil/cmm (3.80-5.20) 11/21/17 05:45 Hgb 8.5 gm/dL (12-16) L 11/21/17 05:45 Hct 27.1 % (41.0-60) L 11/21/17 05:45 MCV 61.9 fl (81-100) L 11/21/17 05:45 MCH 19.3 pg (27.0-31.0) L 11/21/17 05:45 MCHC Differential 31.3 pg (28.0-36.0) 11/21/17 05:45 RDW 16.1 % (11.5-20.0) 11/21/17 05:45 Plt Count 108 Th/cmm (150-400) L 11/21/17 05:45 MPV 9.6 fl 11/21/17 05:45 Neutrophils % 75.3 % (40.0-80.0) 11/21/17 05:45 Band Neutrophils % 1 % (0-10) 11/19/17 05:30 Lymphocytes % 14.9 % (20.0-50.0) L 11/21/17 05:45 Monocytes % 6.6 % (2.0-10.0) 11/21/17 05:45 Eosinophils % 2.4 % (0.0-5.0) 11/21/17 05:45 Basophils % 0.8 % (0.0-2.0) 11/21/17 05:45 Neutrophils (Manual) 85 % (40-80) H 11/19/17 05:30 Lymphocytes 12 % (20-50) L 11/19/17 05:30 Monocytes 2 % (2-10) 11/19/17 05:30 Microcytosis 2+ 11/19/17 05:30 RBC Morph Micro Appear ABNORMAL (NORMAL) 11/19/17 05:30 Sodium 139 mEq/L (136-145) 11/21/17 05:45 Potassium 3.4 mEq/L (3.5-5.1) L 11/21/17 05:45 Chloride 111 mEq/L (98-107) H 11/21/17 05:45 Carbon Dioxide 24.5 mEq/L (21.0-31.0) 11/21/17 05:45 Anion Gap 6.9 (7.0-16.0) L 11/21/17 05:45 BUN 22 mg/dL (7-25) 11/21/17 05:45 Creatinine 0.7 mg/dL (0.6-1.2) 11/21/17 05:45 Est GFR ( Amer) TNP 11/21/17 05:45 Est GFR (Non-Af Amer) TNP 11/21/17 05:45 BUN/Creatinine Ratio 31.4 11/21/17 05:45 Glucose 99 mg/dL (70-105) 11/21/17 05:45 POC Glucose 122 MG/DL (70 - 105) H 11/18/17 12:32 Calcium 8.4 mg/dL (8.6-10.3) L 11/21/17 05:45 Urine Source CATH 11/18/17 12:00 Urine Color YELLOW 11/18/17 12:00 Urine Clarity CLEAR (CLEAR) 11/18/17 12:00 Urine pH 6.0 (4.6 - 8.0) 11/18/17 12:00 Ur Specific [place] >= 1.030 (1.005-1.030) 11/18/17 12:00 Urine Protein 30 mg/dL (NEGATIVE) H 11/18/17 12:00 Urine Glucose (UA) NEGATIVE mg/dL (NEGATIVE) 11/18/17 12:00 Urine Ketones NEGATIVE mg/dL (NEGATIVE) 11/18/17 12:00 Urine Blood MODERATE (NEGATIVE) H 11/18/17 12:00 Urine Nitrate NEGATIVE (NEGATIVE) 11/18/17 12:00 Urine Bilirubin NEGATIVE (NEGATIVE) 11/18/17 12:00 Urine Urobilinogen 0.2 E.U./dL (0.2 - 1.0) 11/18/17 12:00 Ur Leukocyte Esterase NEGATIVE (NEGATIVE) 11/18/17 12:00 Urine RBC 5-10 /hpf (0-5) H 11/18/17 12:00 Urine WBC 2-5 /hpf (0-5) 11/18/17 12:00 Ur Epithelial Cells FEW /lpf (FEW) 11/18/17 12:00 Urine Bacteria 1+ /hpf (NONE SEEN) H 11/18/17 12:00 Coarse Granular Casts 0-2 /lpf (NONE SEEN) H 11/18/17 12:00 Urine Mucus FEW /lpf (FEW) 11/18/17 12:00 - Physical Exam Vitals and I&O: Vital Signs Temp 96.7 F 11/21/17 08:13 Pulse 81 11/21/17 09:31 Resp 18 11/21/17 08:13 BP 130/79 11/21/17 09:31 Pulse Ox 99 11/21/17 08:13 Intake & Output 11/20/17 11/21/17 11/21/17 18:59 06:59 18:59 Intake Total 1000 1068 Balance 1000 1068 Weight (lbs) 44.951 kg Intake: Intake, IV Amount 1000 968 D5-0.9%Ns 1,000 ml @ 90 1000 918 mls/hr IV .Q11H7M [facility] Rx# :[id number] 1 gm In 50 Sodium Chloride 0.9% 50 ml @ 100 mls/hr IV Q24HR [facility] Rx#:[id number] Oral 100 Other: # Voids 2 # Bowel Movements 0 Weight Source Bedscale Active Medications: Current Medications Acetaminophen (Tylenol) 650 mg PO Q6H PRN PRN Reason: HEADACHE/TEMP ABOVE 100F Stop: 01/17/18 22:48 Ferrous Sulfate (Iron) 300 mg PO BID [facility] Stop: 01/19/18 17:14 Last Admin: 11/21/17 09:31 Dose: 300 mg Dextrose/Sodium Chloride (D5-0.9%Ns) 1,000 mls @ 90 mls/hr IV .Q11H7M [facility] Stop: 01/17/18 12:49 Last Admin: 11/21/17 02:09 Dose: 90 mls/hr Ceftriaxone Sodium 1 gm/ (Sodium Chloride) 50 mls @ 100 mls/hr IV Q24HR [facility] Stop: 01/17/18 22:59 Last Infusion: 11/21/17 00:50 Dose: Infused Potassium Chloride 40 meq/Lidocaine HCl 25 mg/ Sodium Chloride 272.5 mls @ 68 mls/hr IV DAILY PRN PRN Reason: k level less than 3.2 Stop: 01/17/18 22:48 Magnesium Sulfate (Magnesium Sulfate Premix) 2 gm in 50 mls @ 25 mls/hr IV DAILY PRN PRN Reason: Magnesium level less than 1.6 Stop: 01/17/18 22:48 Lorazepam (Ativan) 0.5 mg IVP Q6HR PRN; Protocol PRN Reason: Anxiety Stop: 01/17/18 22:48 Last Admin: 11/21/17 06:55 Dose: 0.5 mg Magnesium Oxide (Mag-Oxide) 400 mg PO BID PRN PRN Reason: Mg less than 1.9 Stop: 01/17/18 22:48 Metoprolol Tartrate (Lopressor) 25 mg PO BID [facility] Stop: 01/18/18 17:59 Last Admin: 11/21/17 09:31 Dose: 25 mg Ondansetron HCl (Zofran) 4 mg IVP Q6H PRN PRN Reason: Nausea / Vomiting Stop: 01/17/18 22:48 Potassium Chloride (Klor-Con) 40 meq PO DAILY PRN PRN Reason: k level less than 3.5 Stop: 01/17/18 22:48 Last Admin: 11/21/17 09:31 Dose: 40 meq General: No acute distress, Other (CONFUSED) Neck: Supple Cardiovascular: Regular rate Lungs: Clear to auscultation Abdomen: Bowel sounds, Soft, no Tender - Procedures Procedures: Procedures Procedure Code Date CLOSURE SKIN & SUBCUTANEOUS NEC 86.59 02/11/08 Assessment/Plan - Assessment Assessment: IMPRESSION: 1. MICROCYTIC ANEMIA - R/O IRON DEF - MAY HAVE SLOW GI BLOOD LOSS VS. OTHER. 2. DEMENTIA. RECS: 1. FAMILY DOES NOT WANT AGGRESSIVE MEASURES, AND REFUSE EGD AND COLONOSCOPY. 2. MONITOR HGB; TRANSFUSE PRN. 3. IRON. 4. AWAIT FOBT. 5. ENCOURAGE ORAL DIET.
[2017-11-21] MEDS: cefTRIAXone 1 GM in Sodium Chloride 0.9% 50 ML IV SCH (23:16)
[2017-11-22 06:23] LABS: ANION GAP 10.2 (7.0-16.0); BUN - UREA NITROGEN 11 mg/dL (7-25); CARBON DIOXIDE 26.3 mEq/L (21.0-31.0); CHLORIDE 104 mEq/L (98-107); CREATININE - SERUM 0.7 mg/dL (0.6-1.2); GLUCOSE 112 mg/dL (70-105); POTASSIUM SERUM 3.5 mEq/L (3.5-5.1); SODIUM SERUM 137 mEq/L (136-145)
[2017-11-22 06:27] LABS: HEMOGLOBIN 9.9 gm/dL (12-16); MEAN CORPUSCULAR HEMOGLOBIN 19.5 pg (27.0-31.0); MEAN CORPUSCULAR HGB CONC 31.9 pg (28.0-36.0); MEAN PLATELET VOLUME 10.2 fl; PLATELET COUNT 141 Th/cmm (150-400); RED BLOOD COUNT 5.06 Mil/cmm (3.80-5.20); RED CELL DISTRIBUTION WIDTH 15.7 % (11.5-20.0); WHITE BLOOD COUNT 6.9 Th/cmm (4.8-10.8)
[2017-11-22 06:29] LABS: MANUAL DIFF REQUIRED? YES; MEAN CELL VOLUME 61.2 fl (81-100)
[2017-11-22 08:15] LABS: EOSINOPHIL 4 % (0-5); LYMPHOCYTE 19 % (20-50); MONOCYTE 3 % (2-10); NEUTROPHILS 74 % (40-80); PLATELET ESTIMATE ADEQUATE (NORMAL); TOTAL CELLS COUNTED 100
[2017-11-22 08:16] LABS: ANISOCYTOSIS 1+; HYPOCHROMIA 1+
[2017-11-22] MEDS: Ferrous Sulfate 300 MG/5 ML UDC PO SCH (08:50)
--- NOTE | 2017-11-22 09:09 | Discharge Summary ---
DATE OF DISCHARGE: 11/22/2017 CAUSE OF ADMISSION: The patient is a confused 87-year-old female. She was recently sent to Geropsych Unit. She was receiving inpatient psychiatric care for psychosis. She has history of Alzheimer's dementia and hypertension as well. In the Geropsych Unit, she became unresponsive. Stat labs were ordered and she was not waking, the vitals were stable and she was transferred to Med/Surg unit for further workup and treatment. She was started on IV fluids. She was found to have UTI and vasomotor nephropathy along with hypernatremia. ADMITTING DIAGNOSES: 1. Metabolic encephalopathy. 2. Urinary tract infection. 3. Vasomotor nephropathy. 4. Hypernatremia. 5. Psychosis. 6. Chronic obstructive pulmonary disease. 7. Dementia, Alzheimer's type with exacerbation. 8. Unsteady gait. DISCHARGE DIAGNOSES: 1. Metabolic encephalopathy. 2. Urinary tract infection. 3. Vasomotor nephropathy. 4. Hypernatremia. 5. Psychosis. 6. Chronic obstructive pulmonary disease. 7. Dementia, Alzheimer's type with exacerbation. 8. Unsteady gait. SUMMARY OF HOSPITAL COURSE: The patient was hydrated with IV D5 NS at 90 mL per hour. Renal function improved. Chemistry panel was repeated. She has been on Rocephin 1 g IV daily for UTI. She is more awake and alert now. She has been tolerating oral diet as well; in fact, she has been asking for more food. Dr. Keene was the psychiatrist on the case. The family has been involved in the care, especially the daughter and the son-in-law. PHYSICAL EXAMINATION: VITAL SIGNS: Temperature is 97.1 degrees, heart rate is 81, respirations are 20, blood pressure 149/76. Currently, no pain. GENERAL: No acute distress. She is awake, alert to name. HEENT: No acute issues. NECK: Trachea is midline. CARDIOVASCULAR: Regular rate and rhythm. SKIN: No rash. EXTREMITIES: No edema. LABORATORY DATA: White count is 6.9, hemoglobin is 9.9 and platelet count is 141,000. Sodium 137, potassium 3.5, chloride 104, bicarb 26.3, BUN 11, creatinine 0.7, glucose 112. PROGNOSIS: Fair. ACTIVITY: As tolerated. DISPOSITION: She is being discharged to [facility] per family's request. CONSULTS: Dr. Lopez for GI. Dr. Lopez was consulted because the hemoglobin was dropping. However, the family, especially the son did not want any procedures done. They do not want an EGD or colonoscopy, so stool occult was ordered, but we do not have any results yet. Regardless, the son does not want any further workup or procedures, so consulted Dr. Lopez for GI and Dr. Keene for Psychiatry. JOB# [id number]
--- NOTE | 2017-11-22 21:34 | GI Progress Note ---
Subjective - Review of Systems Service Date: 11/22/17 Subjective: DELAYED NOTE ENTRY. PATIENT SEEN AND EXAMINED AT 0900 TODAY. EVENTS NOTED. NOT FAIR AMOUNTS. Objective - Results Result Diagrams: 11/22/17 05:30 11/22/17 05:30 Recent Labs: Laboratory Last Values WBC 6.9 Th/cmm (4.8-10.8) 11/22/17 05:30 RBC 5.06 Mil/cmm (3.80-5.20) 11/22/17 05:30 Hgb 9.9 gm/dL (12-16) L 11/22/17 05:30 Hct 31.0 % (41.0-60) L 11/22/17 05:30 MCV 61.2 fl (81-100) L 11/22/17 05:30 MCH 19.5 pg (27.0-31.0) L 11/22/17 05:30 MCHC Differential 31.9 pg (28.0-36.0) 11/22/17 05:30 RDW 15.7 % (11.5-20.0) 11/22/17 05:30 Plt Count 141 Th/cmm (150-400) L 11/22/17 05:30 MPV 10.2 fl 11/22/17 05:30 Neutrophils % 75.3 % (40.0-80.0) 11/21/17 05:45 Band Neutrophils % 1 % (0-10) 11/19/17 05:30 Lymphocytes % 14.9 % (20.0-50.0) L 11/21/17 05:45 Monocytes % 6.6 % (2.0-10.0) 11/21/17 05:45 Eosinophils % 2.4 % (0.0-5.0) 11/21/17 05:45 Basophils % 0.8 % (0.0-2.0) 11/21/17 05:45 Neutrophils (Manual) 74 % (40-80) 11/22/17 05:30 Lymphocytes 19 % (20-50) L 11/22/17 05:30 Monocytes 3 % (2-10) 11/22/17 05:30 Eosinophils 4 % (0-5) 11/22/17 05:30 Hypochromia 1+ 11/22/17 05:30 Platelet Estimate ADEQUATE (NORMAL) 11/22/17 05:30 Anisocytosis 1+ 11/22/17 05:30 Microcytosis 2+ 11/22/17 05:30 RBC Morph Micro Appear ABNORMAL (NORMAL) 11/19/17 05:30 Sodium 137 mEq/L (136-145) 11/22/17 05:30 Potassium 3.5 mEq/L (3.5-5.1) 11/22/17 05:30 Chloride 104 mEq/L (98-107) 11/22/17 05:30 Carbon Dioxide 26.3 mEq/L (21.0-31.0) 11/22/17 05:30 Anion Gap 10.2 (7.0-16.0) 11/22/17 05:30 BUN 11 mg/dL (7-25) 11/22/17 05:30 Creatinine 0.7 mg/dL (0.6-1.2) 11/22/17 05:30 Est GFR ( Amer) TNP 11/22/17 05:30 Est GFR (Non-Af Amer) TNP 11/22/17 05:30 BUN/Creatinine Ratio 15.7 11/22/17 05:30 Glucose 112 mg/dL (70-105) H 11/22/17 05:30 POC Glucose 122 MG/DL (70 - 105) H 11/18/17 12:32 Calcium 9.0 mg/dL (8.6-10.3) 11/22/17 05:30 Iron SEE REF.LAB REPORT 11/21/17 05:45 TIBC SEE REF. LAB REPORT 11/21/17 05:45 Iron Saturation SEE REF. LAB REPORT 11/21/17 05:45 Unsaturated IBC SEE REF. LAB REPORT 11/21/17 05:45 Ferritin SEE REF. LAB REPORT 11/21/17 05:45 Vitamin B12 SEE REF. LAB REPORT 11/21/17 05:45 Folic Acid SEE REF. LAB REPORT 11/21/17 05:45 Urine Source CATH 11/18/17 12:00 Urine Color YELLOW 11/18/17 12:00 Urine Clarity CLEAR (CLEAR) 11/18/17 12:00 Urine pH 6.0 (4.6 - 8.0) 11/18/17 12:00 Ur Specific [place] >= 1.030 (1.005-1.030) 11/18/17 12:00 Urine Protein 30 mg/dL (NEGATIVE) H 11/18/17 12:00 Urine Glucose (UA) NEGATIVE mg/dL (NEGATIVE) 11/18/17 12:00 Urine Ketones NEGATIVE mg/dL (NEGATIVE) 11/18/17 12:00 Urine Blood MODERATE (NEGATIVE) H 11/18/17 12:00 Urine Nitrate NEGATIVE (NEGATIVE) 11/18/17 12:00 Urine Bilirubin NEGATIVE (NEGATIVE) 11/18/17 12:00 Urine Urobilinogen 0.2 E.U./dL (0.2 - 1.0) 11/18/17 12:00 Ur Leukocyte Esterase NEGATIVE (NEGATIVE) 11/18/17 12:00 Urine RBC 5-10 /hpf (0-5) H 11/18/17 12:00 Urine WBC 2-5 /hpf (0-5) 11/18/17 12:00 Ur Epithelial Cells FEW /lpf (FEW) 11/18/17 12:00 Urine Bacteria 1+ /hpf (NONE SEEN) H 11/18/17 12:00 Coarse Granular Casts 0-2 /lpf (NONE SEEN) H 11/18/17 12:00 Urine Mucus FEW /lpf (FEW) 11/18/17 12:00 - Physical Exam Vitals and I&O: Vital Signs Temp 96.2 F 11/22/17 12:00 Pulse 94 11/22/17 12:00 Resp 18 11/22/17 12:00 BP 136/78 11/22/17 12:00 Pulse Ox 98 11/22/17 12:00 Intake & Output 11/22/17 11/22/17 11/23/17 06:59 18:59 06:59 Intake Total 300 Balance 300 Weight (lbs) 41.73 kg 39.916 kg Intake: Oral 300 Other: # Voids 2 3 # Bowel Movements 0 0 Weight Source Bedscale Bedscale General: No acute distress, Other (CONFUSED) HEENT: Atraumatic, PERRLA Neck: Supple Cardiovascular: Regular rate Lungs: Clear to auscultation Abdomen: Bowel sounds, Soft, no Tender - Procedures Procedures: Procedures Procedure Code Date CLOSURE SKIN & SUBCUTANEOUS NEC 86.59 02/11/08 Assessment/Plan - Assessment Assessment: IMPRESSION: 1. MICROCYTIC ANEMIA - R/O IRON DEF - MAY HAVE SLOW GI BLOOD LOSS VS. OTHER. 2. DEMENTIA. RECS: 1. FAMILY DOES NOT WANT AGGRESSIVE MEASURES, AND REFUSE EGD AND COLONOSCOPY. 2. MONITOR HGB; TRANSFUSE PRN. 3. IRON. 4. AWAIT FOBT. 5. ENCOURAGE ORAL DIET.
[2017-11-28 16:19] LABS: FERRITIN 552 ng/mL (15-150); FOLIC ACID 6.8 ng/mL (>3.0); IRON LC 90 ug/dL (27-139); TIBC (LC) 167 ug/dL (250-450); UIBC 77 ug/dL (118-369)
== END 2017-11-22 15:50 | DRG 682 ==
LOC: MSI 10:39
PROVIDERS: ADMIT General Practice; ATTEND General Practice
DX: N17.0 Acute kidney failure with tubular necrosis (principal); G93.41 Metabolic encephalopathy; N39.0 Urinary tract infection, site not specified; F02.81 Dementia in other diseases classified elsewhere, unspecified severity, with behavioral disturbance; E87.0 Hyperosmolality and hypernatremia; G30.9 Alzheimer's disease, unspecified; J44.9 Chronic obstructive pulmonary disease, unspecified; F29 Unspecified psychosis not due to a substance or known physiological condition; R26.81 Unsteadiness on feet; I10 Essential (primary) hypertension; D63.8 Anemia in other chronic diseases classified elsewhere; D50.9 Iron deficiency anemia, unspecified
CPT/HCPCS: 36415-UA; 70450-TC; 71045-TC; 80048-TC; 81001-TC; 82607-90; 82728-90; 82746-90; 82948-90; 83540-90; 83550-90; 85007-TC; 85025-TC; 85027-TC; 87086-90; J0696; J1644; J2001; J2060; J3480; J7042; X3401; Z7610